=== PATIENT | male | born 1960 | race Caucasian/White ===

== ENCOUNTER 2016-12-02 20:23 | Emergency (ER) ==
[2016-12-02 20:30] VITALS: BP 168/82; TEMP 97.9; BMI 18.6
[2016-12-02] MEDS ORDERED: TENIVAC IM ONE (20:36)
--- NOTE | 2016-12-02 21:20 | CT ---
EXAM: CT head without contrast HISTORY: Fall with nasal and forehead pain COMPARISON: Same day CT cervical spine and CT facial bone TECHNIQUE: Serial axial images of the brain were obtained from the skull base to the vertex without IV contrast. FINDINGS: The ventricles, cisterns and sulci demonstrate mild generalized volume loss The camacho-whi te matter junction is maintained. There is a low attenuation scattered throughout the periventricul ar white matter.No midline shift or mass is identified. There is no abnormal intra or extra-axial f luid collection. The paranasal sinuses and mastoid air cells are clear. The osseous calvarium is i ntact. There is soft tissue injury to the forehead and periorbital soft tissues. The orbital globes retrobulbar structures are normal. IMPRESSION: 1. No acute intracranial abnormality or hemorrhage is identified. 2. Soft tissue injury to the forehead and periorbital tissues with no underlying fracture identifie d. For further evaluation, please see same day report on CT facial bones. 3. Mild generalized volume loss and scattered microangiopathy.
--- NOTE | 2016-12-02 21:21 | CT ---
EXAM: CT of the face and orbits without contrast. HISTORY: Trauma. PROCEDURE: Contiguous axial CT images of the face and orbits without contrast with coronal and sagi ttal reformats. FINDINGS: The bony structures are intact with no evidence of fracture. The temporomandibular joint s are maintained. The orbits are normal in appearance. The globes are intact and symmetric. There is mucosal thickening in the paranasal sinuses. The mastoid air cells are well-aerated. Impression: No evidence of fracture. Paranasal sinusitis.
--- NOTE | 2016-12-02 21:26 | CT ---
EXAM: CT cervical spine without contrast. HISTORY: Fall COMPARISON: CT head same day TECHNIQUE: Serial axial images of the cervical spine were obtained from the skull base through the lung apices without contrast. These were viewed in multiple planes. FINDINGS: Vertebral bodies demonstrate no acute compression fracture or subluxation. There is mild disc space narrowing and osteophyte formation at C4-C5 and C5-C6. There is mild scattered facet ar thropathy present. There is degenerative change at the articulation of the odontoid process and the anterior aspect of C1. The odontoid process is unremarkable. There is mild bilateral neural amalia inal narrowing at C4-C5 with bilateral moderate to severe narrowing at C5-C6 and C6-C7. The lung ap ices demonstrate mild emphysematous disease. IMPRESSION: 1. No acute compression fracture or subluxation of the cervical spine. 2. Multilevel degenerative disease with narrowing most pronounced at C5-C6 and C6-C7 suggestive of bilateral moderate to severe neural foraminal narrowing. 3. Mild apical emphysematous disease.
[2016-12-02] MEDS ORDERED: BACTROBAN TP STA (21:30)
--- NOTE | 2016-12-02 21:34 | ED.PDOC ---
General ED Provider: Dr. JACINTO HUIZAR-ER Chief Complaint: Facial Injury Stated Complaint: fell and hit his face--no loc Time Seen by Physician: 20:25 Mode of Arrival: Walk-In Information Source: Patient Exam Limitations: No limitations Primary Care Provider: KENDY DIAZ Nursing and Triage Documentation Reviewed and Agree: Yes Trauma/Injury Complaint Exam - Facial Injury Complaint/Exam Location of Pain: Reports: Forehead, Nose, Cheek, Chin Mechanism of Injury: Reports: Trauma Onset/Duration: one hour Symptoms Are: Still present Onset of Pain: Reports: Immediate Initial Severity: Mild Current Severity: Mild Location: Reports: Diffuse Character: Reports: Dull Alleviating: Reports: None Aggravating: Reports: None Associated Signs and Symptoms: Reports: Bruising Related Surgical History: Reports: None Facial Findings: Present: Swelling, Ecchymosis, Abrasion Differential Diagnoses: Abrasion, Contusion, Other Review of Systems - Review Of Systems Constitutional: Reports: No symptoms Eyes: Reports: No symptoms Ears, Nose, Mouth, Throat: Reports: No symptoms Respiratory: Reports: No symptoms Cardiac: Reports: No symptoms GI: Reports: No symptoms : Reports: No symptoms Musculoskeletal: Reports: No symptoms Skin: Reports: No symptoms Neurological: Reports: No symptoms Endocrine: Reports: No symptoms Hematologic/Lymphatic: Reports: No symptoms All Other Systems: Reviewed and Negative Past Medical History - Past Medical History Endocrine: Reports: Unknown Cardiovascular: Reports: Unknown Respiratory: Reports: Unknown Hematological: Reports: Unknown Gastrointestinal: Reports: Unknown Genitourinary: Reports: Unknown Neuro/Psych: Reports: Unknown Musculoskeletal: Reports: Unknown Cancer: Reports: Unknown - Surgical History General Surgical History: Reports: Unknown - Family History Family History: Reports: Unknown - Social History Smoking Status: Current every day smoker, Heavy tobacco smoker Hx Substance Use: No Alcohol Screening: Heavy Lives: With family - Immunizations Tetanus Shot up to Date: No Physical Exam - Physical Exam Appearance: Well-appearing, No pain distress, Well-nourished Eyes: GASPER, EOMI, Conjunctiva clear ENT: Ears normal, Nose normal, Oropharynx normal Neck: Supple Respiratory: Airway patent, Breath sounds clear, Breath sounds equal, Respirations nonlabored Cardiovascular: RRR, Pulses normal, No rub, No murmur GI/: Soft, Nontender, No masses, Bowel sounds normal, No Organomegaly Musculoskeletal: Normal strength Skin: Warm, Dry, Normal color Neurological: Sensation intact, Motor intact, Reflexes intact, Cranial nerves intact, Alert, Oriented Psychiatric: Affect appropriate, Mood appropriate Interpretation - Radiology Interpretation Radiology Interpretation By: Radiologist Radiology Results: Negative Exam Interpreted: CT Scan Critical Care Note - Critical Care Note Total Time (mins): 0 Course - Course Orders, Labs, Meds: Orders Category Date Time Status Mupirocin [Bactroban] MEDS 12/02/16 21:30 Discontinued 1 applic TP ONCE STA Tetanus and Diphtheria Tox/Pf [Tenivac] MEDS 12/02/16 20:36 Discontinued 0.5 ml IM .ONCE ONE CT CERVICAL SPINE W/O CONTRAST Stat RADS 12/02/16 20:[address] HEAD W/O CONTRAST Stat RADS 12/02/16 20:[address] MAXILLOFACIAL W/O CONTRAST Stat RADS 12/02/16 20:35 Completed Medications Discontinued Medications Generic Name Dose Route Start Last Admin Trade Name Freq PRN Reason Stop Dose Admin Mupirocin 1 applic 12/02/16 21:30 Bactroban TP 12/02/16 21:31 ONCE STA Tetanus/Diphtheria Toxoids Adsorbed 0.5 ml 12/02/16 20:36 12/02/16 20:42 Tenivac IM 12/02/16 20:37 0.5 ml .ONCE ONE Administration Vital Signs: Temp Pulse Resp BP Pulse Ox 12/02/16 20:24 97.9 F 83 20 168/82 H 95 Departure - Departure Time of Disposition: 21:36 Disposition: HOME SELF-CARE Discharge Problem: Abrasion of face Qualifiers: Encounter type: initial encounter Qualifier Code: (S00.81XA) Abrasion of other part of head, initial encounter Instructions: Abrasion (ED) Condition: Good Pt referred to PMD for follow-up: Yes Additional Instructions: wash abrasions with soap and water only and apply triple antibiotic ointment till healed Allergies/Adverse Reactions: Allergies No Known Allergies Allergy (Verified 12/02/16 20:31) Home Medications: Ambulatory Orders 1 [No Reported Medications] 10/24/14 Disposition Discussed With: Patient, Family
== END 2016-12-02 22:00 | disposition home or self-care (01) ==
LOC: ED 20:23
DX: S00.81XA Abrasion of other part of head, initial encounter (principal); S00.83XA Contusion of other part of head, initial encounter; W19.XXXA Unspecified fall, initial encounter; F17.210 Nicotine dependence, cigarettes, uncomplicated
CPT/HCPCS: 90471; 99283

== ENCOUNTER 2017-04-20 11:57 | Emergency (ER) ==
[2017-04-20 12:02] VITALS: BP 147/103; TEMP 98.3; BMI 18.8
--- NOTE | 2017-04-20 12:11 | ED.PDOC ---
General ED Provider: Dr. MATTHEW AKHTAR Chief Complaint: Wrist Pain/Injury Stated Complaint: Fell last night; L wrist pain. Using a wrist splint for comfort. Time Seen by Physician: 12:15 Mode of Arrival: Walk-In Information Source: Patient Exam Limitations: No limitations Primary Care Provider: KENDY DIAZ Nursing and Triage Documentation Reviewed and Agree: Yes Review of Systems - Review Of Systems Constitutional: Reports: No symptoms Musculoskeletal: Reports: Joint pain (L wrist) Neurological: Reports: No symptoms All Other Systems: Reviewed and Negative Past Medical History - Past Medical History Endocrine: Reports: Unknown Cardiovascular: Reports: Hypertension Respiratory: Reports: COPD Hematological: Reports: None Gastrointestinal: Reports: None Genitourinary: Reports: None Neuro/Psych: Reports: None Musculoskeletal: Reports: None Cancer: Reports: None - Surgical History General Surgical History: Reports: Unknown - Family History Family History: Reports: Unknown - Social History Smoking Status: Current every day smoker Hx Substance Use: No Alcohol Screening: Occasionally - Immunizations Tetanus Shot up to Date: Yes Physical Exam - Physical Exam Appearance: Well-appearing Musculoskeletal: Limited ROM (L wrist; discomfort with motion) Skin: Warm, Dry, Normal color (No ecchymosis) Psychiatric: Affect appropriate, Mood appropriate Interpretation - Radiology Interpretation Radiology Interpretation By: Radiologist Radiology Results: Negative (L wrist) Critical Care Note - Critical Care Note Total Time (mins): 10 Course - Course Orders, Labs, Meds: Orders Category Date Time Status HIMANSHU [ED HIMANSHU WRAP] .ONCE EMERGENCY 04/20/17 12:46 Active WRIST, LEFT 3 VIEWS Stat RADS 04/20/17 12:14 Completed Vital Signs: Temp Pulse Resp BP Pulse Ox 04/20/17 11:58 98.3 F 98 H 20 147/103 H 94 L Departure - Departure Time of Disposition: 12:46 Disposition: HOME SELF-CARE Discharge Problem: Wrist contusion Qualifiers: Encounter type: initial encounter Laterality: left Qualifier Code: (S60.212A) Contusion of left wrist, initial encounter Instructions: Wrist Injury (ED) Condition: Good Pt referred to PMD for follow-up: Yes (Call for appointment at clinic) Additional Instructions: Use himanshu wrap for comfort and support; tylenol and/or Ibuprofen for discomfort. May follow up with primary care at the clinic if not better in one week. Allergies/Adverse Reactions: Allergies No Known Allergies Allergy (Verified 04/20/17 12:02) Home Medications: Ambulatory Orders 1 [No Reported Medications] 10/24/14
--- NOTE | 2017-04-20 12:41 | DI ---
EXAM: Radiographs, left wrist HISTORY: Initial presentation for left wrist trauma. COMPARISON: None available. TECHNIQUE: Three views. FINDINGS: Bone mineralization is normal. There is no fracture or dislocation. Mild osteoarthritic change throughout the wrist. No focal soft tissue abnormality is seen. IMPRESSION: No fracture or dislocation.
== END 2017-04-20 12:58 | disposition home or self-care (01) ==
LOC: ED 11:57
DX: S60.212A Contusion of left wrist, initial encounter (principal); W19.XXXA Unspecified fall, initial encounter; F17.210 Nicotine dependence, cigarettes, uncomplicated
CPT/HCPCS: 99282

== ENCOUNTER 2017-09-22 13:05 | Outpatient (CLI) ==
[2017-09-22] MEDS ORDERED: ALBUTEROL 0.083% NEB NEB STA (13:32)
--- NOTE | 2017-09-22 14:25 | DI ---
EXAM: PA and lateral views of the chest HISTORY: Dyspnea COMPARISON: Chest x-ray 07/20/2016 FINDINGS: The cardiomediastinal silhouette is normal. Lungs are hyperinflated with flattening of th e diaphragm. There is no pneumothorax or pleural effusion. There is no consolidation, nodule or mas s. The osseous structures are unremarkable. IMPRESSION: 1. No acute cardiopulmonary process or consolidation. 2. Stable findings of chronic obstructive pulmonary disease.
--- NOTE | 2017-09-22 14:30 | DI ---
EXAM: Two views of the left knee HISTORY: Left knee pain. COMPARISON: None FINDINGS: Medial and lateral compartments demonstrate minimal osteophyte formation. The patella is n ormal in position. Soft tissues are normal. There is no displaced fracture or dislocation. There i s no lytic or blastic lesion. IMPRESSION: Minimal degenerative disease of the left knee.
== END 2017-09-22 13:06 | disposition home or self-care (01) ==
LOC: CAR 13:05
PROVIDERS: ATTEND Physician Assistant
DX: R06.00 Dyspnea, unspecified (principal); M25.562 Pain in left knee

== ENCOUNTER 2017-09-28 10:53 | Outpatient (CLI) ==
[2017-09-28 11:11] LABS: BASOPHILS % (AUTO) 0.5 % (0.0-3.0); EOSINOPHILS # (AUTO) 0.1 K/ul (0.0-0.7); EOSINOPHILS % (AUTO) 1.8 % (0.0-7.0); HEMATOCRIT 43.3 % (42.0-52.0); HEMOGLOBIN 15.4 g/dl (14.0-18.0); IMMATURE GRANULOCYTE % (AUTO) 0.3 % (0.0-5.0); MEAN CORPUSCULAR HGB CONC 35.6 (31.8-35.4); MEAN CORPUSCULAR VOLUME 87.3 fl (80.0-94.0); MONOCYTES # (AUTO) 1.3 K/uL (0.4-2.0); NEUTROPHILS # (AUTO) 3.2 K/ul (2.0-6.9); NEUTROPHILS % (AUTO) 48.4; PLATELET COUNT 322 10^3/uL (140-440); RED BLOOD COUNT 4.96 10^6/ul (4.70-6.10); WHITE BLOOD COUNT 6.59 K/ul (4.2-10.2)
[2017-09-28 11:52] LABS: ALBUMIN 3.8 g/dL (3.4-5.0); ANION GAP 10.8; BILIRUBIN,TOTAL 0.8 mg/dL (0.00-1.20); BUN/CREATININE RATIO 5.4; CALCIUM 9.4 mg/dL (8.2-10.2); CREATININE 0.74 mg/dL (0.60-1.10); POTASSIUM 3.8 mmol/L (3.5-5.1); TOTAL PROTEIN 7.6 g/dL (6.4-8.2)
[2017-09-29 07:22] LABS: % FREE PSA 14.8 % (.); PSA, FREE 0.68 ng/mL
== END 2017-09-28 10:54 | disposition home or self-care (01) ==
LOC: LAB 10:53
PROVIDERS: ATTEND Physician Assistant
DX: R06.00 Dyspnea, unspecified (principal); R63.6 Underweight; Z13.220 Encounter for screening for lipoid disorders; Z12.5 Encounter for screening for malignant neoplasm of prostate
CPT/HCPCS: 36415; 80053; 80061; 83036; 84439; 84443; 85025

== ENCOUNTER 2017-10-25 13:01 | Outpatient (CLI) | END 2017-10-25 13:02 | disposition home or self-care (01) | LOC: LAB 13:01 | PROVIDERS: ATTEND Physician Assistant | DX: E87.1 Hypo-osmolality and hyponatremia (principal); L28.2 Other prurigo; R94.6 Abnormal results of thyroid function studies; Z11.59 Encounter for screening for other viral diseases | CPT/HCPCS: 36415; 80053; 83930; 84439; 84443; 85025; 86701; 86803 ==

== ENCOUNTER 2017-12-26 10:45 | Inpatient (IN) ==
--- NOTE | 2017-12-26 12:01 | ED.PDOC ---
General ED Provider: Dr. JACINTO TOBIAS Chief Complaint: Fall Stated Complaint: Lt Sided Chest Pain. States fell at home yesterday morning falling into the toliet in his bathroom striking left side of chest. state the night before he had been with his son celebrating his birthday and was consuming alcohol. She found him yesterday in evening lying in bed as he had not been out yesterday. Attempted to bring him to ER but he refused. Convinced him to come to ER this morning. Time Seen by Physician: 12:15 Mode of Arrival: Wheelchair Information Source: Patient, Family Exam Limitations: Clinical condition Primary Care Provider: MARY KAY SOW Referred to ED by: Other (FAMILY) Nursing and Triage Documentation Reviewed and Agree: Yes Reviewed sepsis parameters & appropriate labs ordered?: Yes System Inflammatory Response Syndrome: Not Applicable Sepsis Protocol: For patient's 13 years and over: Temp is 96.8 and below OR 101 and greater Pulse >90 BPM Resp >20/minute Acutely Altered Mental Status Are patient's symptoms suggestive of a new infection, such as: -Pneumonia -Skin, Soft Tissue -Endocarditis -UTI -Bone, Joint Infection -Implantable Device -Acute Abdominal Infection -Wound Infection -Meningitis -Blood Stream Catheter Infection -Unknown System Inflammatory Response Syndrome: Not Applicable Trauma/Injury Complaint Exam - Truncal Trauma Complaint/Exam Location of Pain: Reports: Left, Anterior, Chest, Flank Onset: 2 days Symptoms Are: Still present Onset of Pain: Reports: Immediate, Post accident Initial Severity: Severe Current Severity: Moderate Mechanism: Reports: Direct blow Aggravating: Reports: Movement, Deep breathing, Cough Alleviating: Reports: None Associated Signs and Symptoms: Reports: Short of air, Chest pain, Cough Related History: Reports: COPD. Denies: Similar episode, Occupational injury, Anticoagulants, Prior rib fracture, Heart Disease, Aortic Aneurysm Related Surgical History: Reports: None Immobilization Removed Post Exam: No Vertebral Tenderness Present: No Vertebral Deformity Present: No Trachial Deviation Present: No JVD Present: No Crepitus Present: No (lt lower costal region ) Diminished Breath Sounds: Yes (bibasilar) Reproducible Pain at: Lt lower anterior chest wall extending to CVA angle Muffled Heart Sounds Present: No Paradoxical Chest Wall Movement Present: No Abdominal Guarding Present: No Abdominal Rigidity Present: No Referred Shoulder Pain (Kehr's Sign) Present: No Skin Findings: Present: Normal findings Review of Systems - Review Of Systems Constitutional: Reports: Malaise, Weakness Eyes: Reports: No symptoms Ears, Nose, Mouth, Throat: Reports: No symptoms Respiratory: Reports: Cough, Orthopnea, Short of air, Wheezing Cardiac: Reports: No symptoms GI: Reports: No symptoms : Reports: No symptoms Musculoskeletal: Reports: Back pain, Joint pain Skin: Reports: No symptoms, Rash Neurological: Reports: No symptoms Endocrine: Reports: No symptoms Hematologic/Lymphatic: Reports: No symptoms All Other Systems: Reviewed and Negative Past Medical History - Past Medical History Endocrine: Reports: Unknown Cardiovascular: Reports: Hypertension Respiratory: Reports: COPD Hematological: Reports: None Gastrointestinal: Reports: None Genitourinary: Reports: None Neuro/Psych: Reports: None Musculoskeletal: Reports: None Cancer: Reports: None - Surgical History General Surgical History: Reports: Unknown - Family History Family History: Reports: Unknown - Social History Smoking Status: Current some day smoker Hx Substance Use: No Alcohol Screening: Occasionally - Immunizations Tetanus Shot up to Date: Yes Physical Exam - Physical Exam Appearance: Well-appearing (Tenderness to palpation Lt anterior chest wall and Lt CVA), No pain distress, Well-nourished, Thin Ill-appearing: Mild Pain Distress: Moderate Eyes: GASPER, EOMI, Conjunctiva clear ENT: Ears normal, Nose normal, Oropharynx normal Respiratory: Airway patent, Breath sounds clear, Breath sounds equal, Respirations nonlabored Cardiovascular: RRR, Pulses normal, No rub, No murmur GI/: Soft, Nontender, No masses, Bowel sounds normal, No Organomegaly Musculoskeletal: Normal strength, ROM intact, No edema, No calf tenderness Skin: Warm, Dry, Normal color Neurological: Sensation intact, Motor intact, Reflexes intact, Cranial nerves intact, Alert, Oriented Psychiatric: Affect appropriate, Mood appropriate Interpretation - Radiology Interpretation Radiology Interpretation By: Radiologist Radiology Results: Negative Exam Interpreted: CXR Radiology Interpretation By: Radiologist Radiology Results: Positive Critical Care Note - Critical Care Note Total Time (mins): 0 Course - Course Hematology/Chemistry: 12/28/17 08:05 12/28/17 08:05 Orders, Labs, Meds: Lab Review 12/26/17 12/26/17 12/26/17 11:49 12:05 12:05 WBC 11.83 H RBC 4.97 Hgb 15.5 Hct 43.4 MCV 87.3 MCH 31.2 H MCHC 35.7 H RDW Coeff of Abigail 14.2 Plt Count 254 Immature Gran % (Auto) 0.3 Neut % (Auto) 81.0 Lymph % (Auto) 6.3 L Perry % (Auto) 12.2 H Eos % (Auto) 0.0 Baso % (Auto) 0.2 Immature Gran # (Auto) 0.0 Neut # (Auto) 9.6 H Lymph # (Auto) 0.7 Perry # (Auto) 1.4 Eos # (Auto) 0.0 Baso # (Auto) 0.0 Puncture Site R brach O2 Saturation 87.0 L ABG pH 7.60 H* ABG pCO2 29.0 L ABG pO2 43.0 L* ABG HCO3 28.8 H ABG Total CO2 30 H ABG Base Excess 7 H Yo Test + O2 Delivery Device Ra Oxygen Liter Flow FiO2 % 21.0 Sodium 130 L Potassium 3.3 L Chloride 87 L Carbon Dioxide 27 Anion Gap 19.3 BUN 6 L Creatinine 0.57 L Estimated GFR (MDRD) 146.00 BUN/Creatinine Ratio 10.52 Glucose 138 H Hemoglobin A1c Calcium 9.4 Total Bilirubin 1.0 AST 28 ALT 16 Alkaline Phosphatase 94 Total Protein 7.7 Albumin 3.8 Globulin 3.9 Albumin/Globulin Ratio 0.97 Plasma/Serum Alcohol < 10.0 12/26/17 12/26/17 12/27/17 12:05 13:30 04:35 WBC 11.57 H RBC 4.82 Hgb 15.1 Hct 42.9 MCV 89.0 MCH 31.3 H MCHC 35.2 RDW Coeff of Abigail 14.2 Plt Count 223 Immature Gran % (Auto) 0.3 Neut % (Auto) 70.8 Lymph % (Auto) 12.4 Perry % (Auto) 16.1 H Eos % (Auto) 0.2 Baso % (Auto) 0.2 Immature Gran # (Auto) 0.0 Neut # (Auto) 8.2 H Lymph # (Auto) 1.4 Perry # (Auto) 1.9 Eos # (Auto) 0.0 Baso # (Auto) 0.0 Puncture Site Lr O2 Saturation 94.0 L ABG pH 7.481 H ABG pCO2 40.4 ABG pO2 65.0 L ABG HCO3 30.2 H ABG Total CO2 31 H ABG Base Excess 7 H Yo Test + O2 Delivery Device Nc Oxygen Liter Flow 2.00 FiO2 % Sodium Potassium Chloride Carbon Dioxide Anion Gap BUN Creatinine Estimated GFR (MDRD) BUN/Creatinine Ratio Glucose Hemoglobin A1c 5.1 Calcium Total Bilirubin AST ALT Alkaline Phosphatase Total Protein Albumin Globulin Albumin/Globulin Ratio Plasma/Serum Alcohol 12/27/17 04:35 WBC RBC Hgb Hct MCV MCH MCHC RDW Coeff of Abigail Plt Count Immature Gran % (Auto) Neut % (Auto) Lymph % (Auto) Perry % (Auto) Eos % (Auto) Baso % (Auto) Immature Gran # (Auto) Neut # (Auto) Lymph # (Auto) Perry # (Auto) Eos # (Auto) Baso # (Auto) Puncture Site O2 Saturation ABG pH ABG pCO2 ABG pO2 ABG HCO3 ABG Total CO2 ABG Base Excess Yo Test O2 Delivery Device Oxygen Liter Flow FiO2 % Sodium 129 L Potassium 4.3 Chloride 92 L Carbon Dioxide 23 Anion Gap 18.3 BUN 7 Creatinine 0.57 L Estimated GFR (MDRD) 146.00 BUN/Creatinine Ratio 12.28 Glucose 96 Hemoglobin A1c Calcium 9.3 Total Bilirubin 1.0 AST 32 ALT 15 Alkaline Phosphatase 81 Total Protein 7.3 Albumin 3.5 Globulin 3.8 Albumin/Globulin Ratio 0.92 Plasma/Serum Alcohol Orders Category Date Time Status ADMIT PATIENT INPATIENT .TO [facility] (NON-MONITORED ADMISSION 12/26/17 16: 56 Inactive BED) OBSERVATION [PLACE PATIENT OBSERVATION] .TO [facility] ADMISSION 12/26/17 17: 33 Inactive (MONITORED BED) ABG DRAW REQUEST Stat CARDIO 12/26/17 11:51 Completed ABG DRAW REQUEST Stat CARDIO 12/26/17 13:30 Completed EKG-(ED ONLY) Stat CARDIO 12/26/17 11:50 Completed NEBULIZER TREATMENT Routine CARDIO 12/26/17 17:35 Completed NEBULIZER TREATMENT Stat CARDIO 12/26/17 12:19 Completed OXYGEN Routine CARDIO 12/26/17 17:13 Completed ACTIVITY .Early Mobilization for VTE Prevention CARE 12/26/17 17:11 Active CASE MANAGEMENT CONSULT ONCE CARE 12/26/17 17:12 Completed INSERT SALINE LOCK ONCE CARE 12/26/17 17:12 Active INTAKE & OUTPUT Q8HR CARE 12/26/17 17:12 Active NPO REMINDER: IMAGING ONCE CARE 12/26/17 16:23 Completed TELEMETRY MONITORING TELE CARE 12/26/17 17:12 Active VITAL SIGNS Q4HR CARE 12/26/17 17:12 Active REGULAR DIET DIETARY 12/26/17 Dinner Completed IV [ED IV/MEDIPORT/POWERPORT] .ONCE EMERGENCY 12/26/17 12:21 Active OXYGEN [ED APPLY O2] .ONCE EMERGENCY 12/26/17 12:22 Active ABG Stat LAB 12/26/17 11:49 Completed ABG Stat LAB 12/26/17 13:30 Completed BLOOD ALCOHOL Stat LAB 12/26/17 12:05 Completed CBC W/ AUTO DIFF DAILY@0600 LAB 12/27/17 04:35 Completed CBC W/ AUTO DIFF DAILY@0600 LAB 12/28/17 08:05 Completed CBC W/ AUTO DIFF Stat LAB 12/26/17 12:05 Completed CMP [COMPREHENSIVE METABOLIC PANEL] Stat LAB 12/26/17 12:05 Completed COMPREHENSIVE METABOLIC PANEL DAILY@0600 LAB 12/27/17 04:35 Completed COMPREHENSIVE METABOLIC PANEL DAILY@0600 LAB 12/28/17 08:05 Completed HEMOGLOBIN A1C Stat LAB 12/26/17 12:05 Completed 0.9 % Sodium Chloride [Saline Flush] MEDS 12/26/17 12:21 Discontinued 1 syr IVF PRN PRN Acetaminophen [Tylenol] MEDS 12/26/17 17:32 Discontinued 500 mg PO Q6HR PRN Albuterol Sulfate 0.083% Neb [Albuterol 0.083% Neb] MEDS 12/26/17 17:34 Discontinued 1 vial NEB Q4-6H PRN Chlordiazepoxide HCl [Librium] MEDS 12/26/17 17:31 Discontinued 25 mg PO TID PRN Clonidine HCl [Catapres] MEDS 12/26/17 15:40 Discontinued 0.1 mg PO ONCE STA Clonidine HCl [Catapres] MEDS 12/26/17 17:44 Discontinued 0.1 mg PO Q8HR PRN Dexamethasone 4 mg/ml Inj [Decadron 4 mg/ml Sdv] MEDS 12/26/17 12:24 Discontinued 4 mg IVP ONCE STA Enoxaparin Sodium [Lovenox] MEDS 12/27/17 09:00 Discontinued 40 mg SUBCUT DAILY Hydromorphone HCl [Dilaudid 1 mg/ml Syringe] MEDS 12/26/17 12:46 Discontinued 0.5 mg IVP ONCE STA Levalbuterol HCl [Xopenex 1.25 mg] MEDS 12/26/17 12:19 Discontinued 1 vial NEB ONCE STA Morphine Sulfate [Morphine 2 mg/ml Syringe] MEDS 12/26/17 17:28 Discontinued 2 mg IVP Q4HR PRN Nicotine 21 mg [Nicoderm 21 mg] MEDS 12/27/17 09:00 Discontinued 1 patch TD DAILY Potassium Chloride in 0.9%NaCl [Sodium Chloride 0.9%- MEDS 12/26/17 17:30 Discontinued KCl 20 Meq] 1,000 ml IV 75 mls/hr Sodium Chloride 0.9% [Sodium Chloride] 1,000 ml MEDS 12/26/17 12:21 Discontinued IV BOLUS Sodium Chloride 3% 500 ml MEDS 12/27/17 09:30 Discontinued IV 100 mls/hr Vitamin B-1 Inj [Thiamine] 100 mg MEDS 12/28/17 09:00 Discontinued 0.9 % Sodium Chloride [Sodium Chloride] 50 ml IV DAILY RESUSCITATION STATUS Routine OTHERS 12/26/17 17:11 Ordered CHEST, 1V AP ONLY Stat RADS 12/26/17 11:[address] CHEST W/WO CONTRAST Stat RADS 12/26/17 16:22 Completed RIBS, UNILATERAL LEFT Stat RADS 12/26/17 13:13 Completed PT CONSULT Routine THERAPIES 12/26/17 15:15 Completed Medications Discontinued Medications Generic Name Dose Route Start Last Admin Trade Name Freq PRN Reason Stop Dose Admin Acetaminophen 500 mg 12/26/17 17:32 Tylenol PO Q6HR PRN Mild Pain Hydrocodone Bitart/Acetaminophen 1 tab 12/27/17 11:40 12/27/17 12:27 [place] 7.5-325 PO 1 tab Q6H PRN Administration PAIN Hydrocodone Bitart/Acetaminophen 1 tab 12/27/17 21:00 12/28/17 13:22 [place] 10-325 PO 1 tab Q4HR JULIA Administration Adenosine 6 mg 12/27/17 16:44 12/27/17 16:55 Adenocard IVP 12/27/17 16:45 6 mg ONCE STA Administration Albuterol Sulfate 1 vial 12/26/17 17:34 Albuterol 0.083% Neb NEB Q4-6H PRN Wheezing Amlodipine Besylate 5 mg 12/27/17 11:30 12/27/17 11:14 Norvasc PO 5 mg DAILY JULIA Administration Amlodipine Besylate 5 mg 12/27/17 11:00 12/27/17 13:21 Norvasc PO Not Given DAILY JULIA Chlordiazepoxide HCl 25 mg 12/26/17 17:31 12/27/17 16:17 Librium PO 25 mg TID PRN Administration Alcohol Withdrawal Chlordiazepoxide HCl 25 mg 12/27/17 21:00 Librium PO QSHIFT [facility] Chlordiazepoxide HCl 25 mg 12/27/17 18:00 12/28/17 13:22 Librium PO 25 mg Q4H JULIA Administration Clonidine 0.1 mg 12/26/17 15:40 12/26/17 15:55 Catapres PO 12/26/17 15:41 0.1 mg ONCE STA Administration Clonidine 0.1 mg 12/26/17 17:44 Catapres PO Q8HR PRN Blood Pressure Dexamethasone Sodium Phosphate 4 mg 12/26/17 12:24 12/26/17 12:58 Decadron 4 Mg/Ml Sdv IVP 12/26/17 12:25 4 mg ONCE STA Administration Diltiazem HCl 60 mg 12/27/17 21:00 12/28/17 08:45 Cardizem PO 60 mg Q12HR JULIA Administration Enoxaparin Sodium 40 mg 12/27/17 09:00 12/28/17 08:48 Lovenox SUBCUT 40 mg DAILY JULIA Administration Hydromorphone HCl 0.5 mg 12/26/17 12:46 12/26/17 13:08 Dilaudid 1 Mg/Ml Syringe IVP 12/26/17 12:47 0.5 mg ONCE STA Administration Sodium Chloride 1,000 mls @ 500 mls/hr 12/26/17 12:21 12/26/17 12:56 Sodium Chloride IV 12/26/17 14:20 500 mls/hr BOLUS STA Administration Potassium Chloride/Sodium Chloride 1,000 mls @ 75 mls/hr 12/26/17 17:30 12/28 16:00 Sodium Chloride 0.9%-Kcl 20 Meq IV Not Given .[id number] [facility] Thiamine HCl 100 mg/ Sodium 51 mls @ 100 mls/hr 12/27/17 11:30 12/27/17 11:14 Chloride IV 12/27/17 12:00 100 mls/hr ONCE ONE Administration Thiamine HCl 100 mg/ Sodium 51 mls @ 100 mls/hr 12/28/17 09:00 12/28/17 08:45 Chloride IV 100 mls/hr DAILY JULIA Administration Sodium Chloride 500 mls @ 100 mls/hr 12/27/17 09:30 12/27/17 19:00 Sodium Chloride 3% IV 12/27/17 09:59 Not Given .Q5H JULIA Sodium Chloride 500 mls @ 100 mls/hr 12/28/17 10:30 12/28/17 10:56 Sodium Chloride 3% IV 12/28/17 10:59 100 mls/hr .Q5H JULIA Administration Levalbuterol HCl 1 vial 12/26/17 12:19 12/26/17 12:50 Xopenex 1.25 Mg NEB 12/26/17 12:20 1 vial ONCE STA Administration Metoprolol Tartrate 5 mg 12/27/17 17:06 12/27/17 17:09 Lopressor IVP 12/27/17 17:07 5 mg ONCE STA Administration Morphine Sulfate 2 mg 12/26/17 17:28 12/27/17 16:27 Morphine 2 Mg/Ml Syringe IVP 2 mg Q4HR PRN Administration Severe Pain Nicotine 1 patch 12/27/17 09:00 12/28/17 08:46 Nicoderm 21 Mg TD 1 patch DAILY JULIA Administration Ondansetron HCl 4 mg 12/27/17 16:20 12/27/17 16:15 Zofran 4 Mg/2 Ml IVP 4 mg Q6H PRN Administration Nausea / Vomiting Pneumococcal Polyvalent Vaccine 0.5 ml 12/27/17 13:32 12/27/17 15:13 Pneumovax 23 IM 12/27/17 13:33 0.5 ml .ONCE ONE Administration Sodium Chloride 1 syr 12/26/17 12:21 12/26/17 12:56 Saline Flush IVF 1 syr PRN PRN Administration To flush IV Vital Signs: Temp Pulse Resp BP Pulse Ox 12/27/17 10:23 96.9 F L 97 H 22 194/102 H 89 L 12/27/17 10:00 97.9 F 88 12 183/90 H 89 L 12/27/17 06:00 97.9 F 86 16 147/94 H 90 L 12/27/17 02:00 98.3 F 80 20 174/90 H 92 L 12/26/17 22:00 97.9 F 77 15 160/80 H 94 L 12/26/17 18:02 97.4 F L 80 16 95 12/26/17 17:36 174/87 H 12/26/17 17:23 188/93 H 95 12/26/17 11:27 194/102 H 12/26/17 10:47 96.9 F L 97 H 22 213/113 H 89 L Departure - Departure Time of Disposition: 17:30 Disposition: PLACED OBSERVATION Discharge Problem: Multiple fractures of ribs of left side, Alcohol abuse, Tobacco abuse, Blunt chest trauma Condition: Fair Pt referred to PMD for follow-up: Yes IPMP verified?: Yes Allergies/Adverse Reactions: Allergies No Known Allergies Allergy (Verified 01/01/18 11:13) Home Medications: Ambulatory Orders Albuterol Sulfate [Proair Hfa] 2 puff IH Q4H 14 Days #1 puff 12/28/17 Chlordiazepoxide HCl [Librium] 25 mg PO DIRECTED 15 Days #20 capsule Diltiazem HCl [Cardizem] 60 mg PO Q12HR 30 Days #60 tablet 12/28/17 Hydrocodone Bit/Acetaminophen [[place] 10-325] 1 tab PO Q6-8H PRN 7 Days #28 tab 12/28/17 Vitamin B-1 [Thiamine] 100 mg PO DAILY 30 Days #30 tablet 12/28/17 Potassium Chloride [K-Tab ER] 10 meq PO DAILY #10 tablet.er 01/03/18 Disposition Discussed With: Patient, Family Additional Information: Discussed case with Dr Genao for accepting patient as hospitalist for admission. Agreed to accept patient Came to department and saw pt prior to departure Results discussed with patient/family Condition stable/prognosis -guarded
[2017-12-26] MEDS ORDERED: XOPENEX 1.25 MG NEB STA (12:19)
[2017-12-26] MEDS ORDERED: DECADRON 4 MG/ML SDV 10 MG in SODIUM CHLORIDE 50 ML IV STA (12:20)
[2017-12-26] MEDS ORDERED: SODIUM CHLORIDE 1,000 ML IV STA (12:21)
[2017-12-26] MEDS ORDERED: DECADRON 4 MG/ML SDV IVP STA (12:24)
--- NOTE | 2017-12-26 12:24 | DI ---
Exam: Two x-rays of the chest. Comparison: 09/22/2017. Reason for exam: Short of breath. FINDINGS: No pneumothorax, pleural effusion, or focal consolidation. The cardiac silhouette is not enlarged. The imaged osseous structures appear grossly unremarkable without acute fracture. Parench ymal changes are seen consistent with chronic lung disease. Impression: No acute cardiopulmonary process in the setting of chronic lung disease.
[2017-12-26] MEDS ORDERED: DILAUDID 1 MG/ML SYRINGE IVP STA (12:46)
--- NOTE | 2017-12-26 14:16 | DI ---
EXAM: Two views of the left ribs HISTORY: Pain after falling. COMPARISON: Chest x-ray 09/07/2008 FINDINGS: Minimally displaced fracture of the left sixth, eighth and ninth ribs. No additional fract ure is identified. There is no pneumothorax. The soft tissues are unremarkable. IMPRESSION: Minimally displaced fracture of the left sixth, eighth and ninth ribs.
[2017-12-26] MEDS ORDERED: CATAPRES PO STA (15:40)
--- NOTE | 2017-12-26 16:45 | PCM ---
- Chief Complaint Chief Complaint: Fall with fracture of ribs x 3. Hypoxia. - History of Present Illness History of Present Illness: Contacted by Er at 4:30 Pm about patient in the Er who has fallen. Went to sons and had too much to drink and they carried him to his car. Monday night into monday am and around 1:30. Normally consumes Beer. Drinks daily. The patient drinks coffee in am and then straight to beer. He will be 6-12 beers per day. Today he has not had any ETOH. NO water today. Would not eat last night, would not drink last night. Nothing today. The patient was in severe pain, intractable pain. and patient are . Present in ER today with granddaughter and the . Yeserday was at sons home. Patient goes to wifes home every day. Went over to check on him last night. Found him in bed, could barely move or berath. They got him up and took him to separted wifes home. Did not want ambulance. She took him home with her and he was up all nigth with him with breathing issues. If no better in am they decided to go to ER. They brought him in today. Report given to me by Dr. Loza. He normally folllows with local [facility] clinic. The paitent lost hsi balance and fell hitting his left chest cage. He presented hypoxic, 70% O2 upon entry per ER, BP markedly elevated. Pain meds eased up the pain. 0.1 clonidine. This dropped to normal BP. ABG completed and reported to me at pH 7.6, PO2 43, 87% RA, PCO29. Neb tx, O2 added and his Gas improved to 7.481, Po2 65, PCO2 40.4 and O2 94%. No local PCP, following with local [facility]. The patient is a heavy tobacco user. 1 pack per day smoker. History of right arm injury, circulatory issues and right arm is essentially non functional. Patient reports pain along lower rib cage 10/10. Worse with deep inspiration. Worse with movement. Last drink of ETOH 2 days ago. Has gone 1-1.5 months w/o ETOH. No history of DT per patient. The patient WBC initially was 11.83. Sodium 130. Potasium mildly low at 3.3. BUN 6 and Creatinine normal at 0.57. Glucose 138. Xray showed displaced 6, 8, 9 ribs. We have ordered a CT chest at my request. We will check serum ETOH levels. I wanted to make sure that hs has no contusion of his lung. He is currently having HTN urgency. He has not had anything to eat/drink. Had a sip with clonidine earlier 30 minutes ago. He has had urine output since being in ER. Most recent vitals BP 194/102 Pain 10/10 Left rib cage O2 89% 96.9 temp. RR 22 History of BP meds, BP leveled off after surgery and then BP more normal. - Review of Systems Constitutional: weakness, fatigue, loss of appetite. No: fever, chills, sweats Eyes: pain. No: blurred vision, double-vision, discharge, itching, redness, photophobia Ears: No: pain, bleeding, drainage, ringing Nose: No: bleeding, congestion, discharge Throat: No: pain, swelling, voice change Mouth: No: bleeding, pain, swelling Respiratory: cough, shortness of air, wheeze, pain with breathing. No: hemoptysis Cardiovascular: chest pain (chest pain along left from rib fracture). No: left arm pain, diaphoresis, PND, orthopnea, edema, palpitations, syncope Gastrointestinal: No: abdominal pain, nausea, vomiting, diarrhea Genitourinary: No: dysuria, hematuria, frequency, incontinence, flank pain Neurological: headache. No: dizziness, seizure, numbness, weakness Musculoskeletal: pain Skin: No: rash, pruritus, lacerations Immunology: No: hives, itching, frequent infections Hematology: No: easy bruising, easy bleeding Endocrine: No: weight changes, cold intolerance, heat intolerance, excessive hunger Psychiatric: other (ETOH abuse). No: depression, anxiety, sleeplessness, hopelessness, suicidal, hallucinations Habits: tobacco use, alcohol use - Past Medical History Past Medical History: ETOHISM, essential HTN. Underweight. Arm injury on right due to ETOH issue. - Past Surgical History Past Surgical History: Jaw surgeries. - Allergies Allergies/Adverse Reactions: Allergies Allergy/AdvReac Type Severity Reaction Status Date / Time No Known Allergies Allergy Verified 04/20/17 12:02 - Medications Medications: Medications Generic Name Dose Route Start Last Admin Trade Name Freq PRN Reason Stop Dose Admin Sodium Chloride 1 syr 12/26/17 12:21 12/26/17 12:56 Saline Flush IVF 1 syr PRN PRN Administration To flush IV - Family History Past Family History: Family of 13 children 7 bopys 6 girls. Alcoholism. 2 brothers. 4/13 siblings still living. Mother is living. Father unknown. Cancer in family unknown. - Vital Signs Temperature: 96.9 F Pulse Rate: 97 Respiratory Rate: 22 Blood Pressure: 194/102 O2 Sat by Pulse Oximetry: 89 - Body Composition Height: 5 ft 7 in Weight: 119 lb Body Mass Index (BMI): 18.6 - Physical Examination HEENT: Constitutional: LOCATION: EMERGENCY ROOM Appearance-acute distress, pain in ribs from fracture/fall. Consistent with stated age. Orientation- Oriented x 3, alert Posture-Not doubled over. Gait-Normal pace, normal arm movement. Build and Nutrition-Well developed and well nourished. General- Patient is pleasant and cooperative with the interview and exam. Integumentary: General-No rashes, ulcers or lesions. Palpation- Normal skin moisture/turgor. Skin is warm to touch, appropriate. Capillary refill is normal bilateral Upper and lower extremity. Head/Neck: Head- normocephalic and atraumatic. Neck- without visible/palpable lumps or pulsations. Palpation- No bony tenderness about head/neck along frontal, occipital, temporal, parietal, mastoid, jawline, zygoma, orbit or any other location.~ NO temporal artery tenderness. No TMJ tenderness. Neck Supple. Thyroid-No thyromegaly, no nodules Eye: Bilaterally PERRLA, EOMI. No discharge. Upper and lower eyelids are normal. Sclera/conjunctiva normal without discharge. Cornea is normal and clear. Lens is normal. Eyeball appears normal. No ciliary flushing, no conjunctival injection. ENMT: Pinna- normal without tenderness or erythema. External auditory canal Left- normal without erythema or discharge, no excessive cerumen. External auditory canal Right-normal without erythema or discharge, no excessive cerumen. TM left- Martin/pearly, normal light reflex and anatomy no hemotympanum, no perforation. TM Right- Martin/pearly, normal light reflex and anatomy no hemotympanum, no perforation. Hearing Assessment-normal to conversational speech. Nose and sinus- Abnormality/scarring/flattening to nasal bridge from prior trauma/injury, not from this event. No sinus tenderness along frontal/ maxillary region. External appearance normal and midline. Nares- bilateral quiet airflow, no discharge. Nasal mucosa- No bleeding noted and no ulcerations observed. [place], moist. Turbinates non boggy. Lips- normal color, moist without cracks/lesions Oral Cavity/Palate- hard/soft palate intact without lesions, oral mucosa pink and moist. Dentition assessed and discussed appropriate oral care. Tongue normal midline. Oropharynx- no pharyngeal erythema, Uvula midline. No post nasal drip. No exudate. Salivary glands- Non tender to palpation CHEST/LUNG: Inspection- symmetric chest wall no pectus deformity. No flail chest. Decreased effort, pain response is present. no use of accessory muscles. Palpation- tender sternum, and ribline along left. No abnormal pulsations. Auscultation- Breath sounds diminished throughout all lung hathaway. Normal tracheal sounds, Normal bronchial sounds overlying sternum, Bronchovessicular sounds decreased coarse between scapulae posteriorly, and with vessicular breath sounds heard throughout periphery. Adventitious sounds- Scattered wheezes, no rales, Scattered diffuse rhonchi. Coarse sounds predominate. CARDIOVASCULAR: Carotid artery- normal, no bruits or abnormal pulsations. Jugular vein- no pulsations. Palpation/Percussion- Normal PMI, no palpable thrill Auscultation- Regular rate and rhythm. No murmur noted in sitting, supine positions. Extremities- no digital clubbing, cyanosis, edema, increased warmth. ABDOMEN: Inspection- normal and no visible pulsations. Normal contour. Auscultation- Bowel sounds normal, no abdominal bruits. Palpation/Percussion- soft, non-tender, no rebound tenderness, no rigidity (guarding), no jar tenderness, no masses. Liver-no hepatomegaly, Spleen no splenomegaly, Hernias - none. Rectal not examined. Peripheral Vascular: Upper extremity Left- Normal temperature with pink nailbeds and no ulcerations. Upper extremity Right- Normal temperature with pink nailbeds and no ulcerations. Lower extremity- Normal temperature with pink nailbeds and no ulcerations. DP pulses 2+ bilaterally. Pedal hair intact. Normal capillary refill. Edema- No edema. Musculoskeletal: Generalized-No generalized swelling or edema of extremities, no digital clubbing or cyanosis, neurovascularly intact all four extremities. Upper extremity- Symmetrical posture. No visible deformity. Normal sensation along medial and lateral upper extremity proximally and distally. NO tenderness overlying shoulder, lateral/medial epicondyle. Clinical Professor 5/5 and strength 5/5 bilateral UE. Elbow palpated, no tenderness overlying olecranon. Normal supination, pronation to active/passive ROM and to resisted rotation. Bicep insertion/tricep insertion appear normal without obvious pathology. Rotator cuff evaluated and intact. Normal wrist ROM bilaterally. Normal hand movement, intrinsic muscles of hands normal. No tenderness to palpation of hands/wrists/ elbows. Lower extremity- Hip: Not tender to palpation, no pain, no swelling, edema or erythema of surrounding tissue, normal strength and tone. Normal appearing hip ROM bilaterally without pain. Knee: Knee ROM normal. No tenderness overlying trochanters, no tenderness about patella, quad tendon, patellar tendon. No tenderness at tibial tuberosity. Ankle: normal ROM not tender to palpation along medial/lateral malleolus. Foot: Normal movement of toes, no tenderness bilateral feet/toes. Normal foot type. Spine- No deformities, masses or tenderness, no known fractures, normal strength , Normal ROM. Normal stability No tenderness along C/T/L spine. Normal appearing ROM about spine. RIBS: No visible deformities, no ecchymosis, no masses. Left chest wall from nipple line to costal margin with marked tenderness from anterior mid clavicular line through the posterior spine,known fractures Ribs 8-12, Neurological: General- Moves all 4 extremities symmetrically. Symmetrical face and body posture. Cranial nerves- individually evaluated II-XII and intact. PERRLA, Normal EOMI, visual/special senses appear intact, Face is symmetrical and normal sensation/movement, normal tongue, normal strength/posture of neck musculature. Reflexes- intact with DTR 2+ patellar, Achilles, bicep, brachial, tricep. Ankle clonus normal with 2 beats. Strength- 5/5 bilateral UE and LE. Soft touch- intact bilateral UE and LE. Temperature sensation- intact bilateral UE and LE. Cerebellar testing-Rapid alternating movements intact. Heel huerta intact. Able to walk normal gait, normal heel toe walking. Balance- Romberg intact. Normal Walking, heel toe walking, tip toe and heel walking normal. No E/O DT, no e/o withdrawl. No GAGE, no N/V/D. Neuropsych: Oriented- Person, place, time. (AAOx3), Mood/affect- normal and congruent. Able to articulate well. Speech-Normal speech, normal rate, normal tone, normal use of language, volume and coherence. Thought content- normal with ability to perform basic computations and apply abstract thought/reason. Associations- intact, no SI/HI, no hallucinations, delusions, obsessions. Judgment/insight- Appropriate. Memory-Recall intact, remote and recent memory intact. Knowledge- Age appropriate fund of knowledge, concentration and attention span normal. No aggitation. Lymphatic: Head/Neck- normal size and non tender to palpation. Axillary- normal size and non tender to palpation. Femoral and Inguinal- normal size and non tender to palpation. CIWA Scale. Nausea and vomitin Paroxysmal sweats: 2-3 (pain response most likely at this time) Anxiety: 0 Headache: 0 Auditory disturbances: 0 Visual disturbances: 0 Agitation: 0 Tremor: 0 Tactile disturbance: 0 Orientation: 0 Total score: <10 very mild withdrawal at this time. Monitor. - Lab/Tests/Diagnostic Imaging Lab/Tests/Diagnostic Imaging: Laboratory Results - last 24 hr 12/26/17 12/26/17 12/26/17 11:49 12:05 12:05 WBC 11.83 H RBC 4.97 Hgb 15.5 Hct 43.4 MCV 87.3 MCH 31.2 H MCHC 35.7 H RDW Coeff of Abigail 14.2 Plt Count 254 Immature Gran % (Auto) 0.3 Neut % (Auto) 81.0 Lymph % (Auto) 6.3 L [place] % (Auto) 12.2 H Eos % (Auto) 0.0 Baso % (Auto) 0.2 Immature Gran # (Auto) 0.0 Neut # (Auto) 9.6 H Lymph # (Auto) 0.7 [place] # (Auto) 1.4 Eos # (Auto) 0.0 Baso # (Auto) 0.0 Puncture Site R brach O2 Saturation 87.0 L ABG pH 7.60 H* ABG pCO2 29.0 L ABG pO2 43.0 L* ABG HCO3 28.8 H ABG Total CO2 30 H ABG Base Excess 7 H Yo Test + O2 Delivery Device Ra Oxygen Liter Flow FiO2 % 21.0 Sodium 130 L Potassium 3.3 L Chloride 87 L Carbon Dioxide 27 Anion Gap 19.3 BUN 6 L Creatinine 0.57 L Estimated GFR (MDRD) 146.00 BUN/Creatinine Ratio 10.52 Glucose 138 H Calcium 9.4 Total Bilirubin 1.0 AST 28 ALT 16 Alkaline Phosphatase 94 Total Protein 7.7 Albumin 3.8 Globulin 3.9 Albumin/Globulin Ratio 0.97 Plasma/Serum Alcohol < 10.0 12/26/17 13:30 WBC RBC Hgb Hct MCV MCH MCHC RDW Coeff of Abigail Plt Count Immature Gran % (Auto) Neut % (Auto) Lymph % (Auto) [place] % (Auto) Eos % (Auto) Baso % (Auto) Immature Gran # (Auto) Neut # (Auto) Lymph # (Auto) [place] # (Auto) Eos # (Auto) Baso # (Auto) Puncture Site Lr O2 Saturation 94.0 L ABG pH 7.481 H ABG pCO2 40.4 ABG pO2 65.0 L ABG HCO3 30.2 H ABG Total CO2 31 H ABG Base Excess 7 H Yo Test + O2 Delivery Device Nc Oxygen Liter Flow 2.00 FiO2 % Sodium Potassium Chloride Carbon Dioxide Anion Gap BUN Creatinine Estimated GFR (MDRD) BUN/Creatinine Ratio Glucose Calcium Total Bilirubin AST ALT Alkaline Phosphatase Total Protein Albumin Globulin Albumin/Globulin Ratio Plasma/Serum Alcohol - Assessment (1) Fall Status: Acute Code(s): W19.XXXA - UNSPECIFIED FALL, INITIAL ENCOUNTER SNOMED Code(s): 1187450 (2) Rib fracture Status: Acute Code(s): S22.39XA - FRACTURE OF ONE RIB, UNSP SIDE, INIT FOR CLOS FX SNOMED Code(s): 18677208 (3) Elevated blood pressure, situational Status: Acute Code(s): R03.0 - ELEVATED BLOOD-PRESSURE READING, W/O DIAGNOSIS OF HTN SNOMED Code(s): 21044656 (4) Alcohol abuse Status: Acute Code(s): F10.10 - ALCOHOL ABUSE, UNCOMPLICATED SNOMED Code(s) : 98787369 (5) Intractable pain Status: Acute Code(s): R52 - PAIN, UNSPECIFIED SNOMED Code(s): 41932028 (6) Smokes 1 pack of cigarettes per day Status: Acute Code(s): F17.210 - NICOTINE DEPENDENCE, CIGARETTES, UNCOMPLICATED SNOMED Code(s): 30350820 (7) Underweight due to inadequate caloric intake Status: Acute Code(s): R63.6 - UNDERWEIGHT SNOMED Code(s): 871255242 - Plan Plan: 1. Fall w/ multiple left sided Rib Fractures : CXR minimally displaced. He is in pain 07/18. We will cover pain with morphine as listed. If stable overnight d/c tomorrow with oral pain med. - Morphin 2 mg IV q 4 hours pRN. - Tylenol 500 TID PRN pain - Admit to obs 2. Elevated BP: It is my recommendation to treat the pain first and place patient into a quiet room to rest. He appears dehydrated as well as no liquids in ~24 hours. Hydrate with NS + K and monitor BP. I will have clonidine q 8 hours if BP >180 SBP or >100 DBP. Overnight. IF still high in am consider norvasc 5mg to start. Typically patients who rest >30 minutes in quiet room can have drops in BP of ~20/10. 3. ETOH Abuse: CAGE +. CIWA reviewed and negative. I will have librium ordered if needed. Thiamine. - Librium 25 mg TID PRN withdrawal symptoms. - Thiamine 100mg IV daily 4. Hyponatremia/Hypokalemia: Suspect malnutrition. We will hydrate with NS + 20Kcl at 75/hour. Repeat labs in am. Monitor sodium. Mild hyponatremia, mild hypokalemia. We can use isotonic saline in this case as still >130. I would not use Hypertonic saline unless <130. He is asymptomatic, pain response. Beer [place] is possible with the patient. Albumin is okay. The mild hyponatremia and hypokalemia will be slowly corrected as I do not want to shift this and cause herniation. If sodium dropping further consider single bolus of hypertonic saline but no major corrections necessary as he is likely chronically low. - Am CBC - AM CMP - NS + 20 KCL 75ml/hour 5. Hyperglycemia: We will check a1c. - A1C 6. Tobacco: We will provide nicotine patch for patient. 21 mcg. - Nicoderm 21 mcg patch 7. COPD: At this time wheezing and coarse sounds may be from acute situational process and decreased inhalation due to pain. Neb tx albuterol. No steroids for now. Monitor overnight - Albuterol q 4 hours pRN. 8. DVT Prophy: - LovenoX 40mg Subcut daily. 9. Diet: Ad Александр 10. Up with Assist overnight fall precaution 11. Disposition, likely home in am if stable. Admission: Discussion with ER doctor personally, review of CXR/Rib series and CT chest personally, orders, H+P took just at 1 hour. Suspect observation. If Hypokalemia worsens may consider change to admit. Pain meds to be monitored.
--- NOTE | 2017-12-26 17:16 | CT ---
EXAM: CT of the chest with and without contrast History: Chest trauma, left-sided rib fractures. Technique: Multiplanar CT images through the thorax were obtained with and without the administratio n of IV contrast. 3-D reconstructions were also acquired. Findings: Heart size is upper limits of normal. Coronary calcifications. No aortic aneurysm. Aberr ant left subclavian artery is a normal variation. No axillary lymphadenopathy. No pericardial effus ion. No mediastinal or hilar lymphadenopathy. There is mild emphysema. No pneumothorax. Trace lef t pleural effusion. Mildly displaced fractures of the 05/11/2012, posterior left ribs. There is a m ildly displaced fracture of the left L2 transverse process. Within the visualized upper abdomen, no acute findings. The liver might be fatty. Impression: 1. Displaced left posterior 8th through 12th rib fractures. No pneumothorax. 2. Trace left pleural effusion. 3. Coronary artery disease. 4. Possible fatty liver.
[2017-12-26] MEDS ORDERED: LIBRIUM PO PRN (17:31)
[2017-12-26] MEDS ORDERED: TYLENOL PO PRN (17:32)
[2017-12-26] MEDS ORDERED: ALBUTEROL 0.083% NEB NEB PRN (17:34)
[2017-12-26] MEDS ORDERED: CATAPRES PO PRN (17:44)
[2017-12-26] MEDS: SODIUM CHLORIDE 0.9%-KCL 20 MEQ 1,000 ML IV SCH (18:11)
[2017-12-26] MEDS: MORPHINE 2 MG/ML SYRINGE IVP PRN (18:16)
[2017-12-27] MEDS: SODIUM CHLORIDE 0.9%-KCL 20 MEQ 1,000 ML IV SCH ×2 (07:37→23:16)
[2017-12-27] MEDS: LOVENOX SUBCUT SCH (08:28)
[2017-12-27] MEDS: NICODERM 21 MG TD SCH (08:28)
[2017-12-27] MEDS: MORPHINE 2 MG/ML SYRINGE IVP PRN ×3 (08:46→16:27)
[2017-12-27] MEDS ORDERED: SODIUM CHLORIDE 3% 500 ML IV SCH (09:30)
[2017-12-27 10:13] VITALS: BMI 18.6
[2017-12-27] MEDS ORDERED: NORVASC PO SCH ×2 (11:00→11:30)
[2017-12-27] MEDS ORDERED: NORCO 7.5-325 PO PRN ×2 (11:27→11:40)
[2017-12-27] MEDS ORDERED: THIAMINE 100 MG in SODIUM CHLORIDE 50 ML IV ONE (11:30)
--- NOTE | 2017-12-27 13:08 | PCM.PROG ---
Subjective: Patient awake on entry at 7:15 this am. Met with nursing prior to note and reviewed new labs/evaluation. Reviewed his vitals overnight. The patient has been and remains afebrile with HR from 77-97. RR 12-22. He has pain in his left flank w/ history of 5 fractures from rib 8-12 posteriorly. Patient BP was 212/113 in ER, received clonidine. BP down to 147/4 at 0600 and then back up to 194/102 by the completion of this note. Pain at 07/18, he had morphine at 1816 and then again at 846 this am. He notes the pain meds work for about 4-5 hours and do cut the edge off of his pain. Vitals listed below. He has remained ~89% with orders for oxygen. The patient is not breathing deeply, he feels less pain now. Labs reviewed with patient: Hyperglcymia: A1C ordered and normal at 5.5. Resolved this am. CBC: 11.57 and mildly elevated, Hgb stable at 15.1. PLt remains stable at 254. ABG: no new abg since ER evaluation CMP: Sodium was 130 at admit with potassium 3.3. Chloride low. Glucose up, calcium normal. NOrmal Cr and GFR. Albumin good at 3.8 Labs this am showed. Overnight changes:Despite NS+ 20meq KCL at 75/hl, sodium dropped from 130 to 129. As this dropped <130 I opted for a small bolus of 3% saline. I will repeat BMP this afternoon at 1pm. He has been changed from obs to inpt. Sodium now 129, K + normalized at 4.3. Cr remains okay at 0.57. Calcium okay at 9.3. AST 32, ALT 15. He has CIWA of 2-3 stll, has not had librium. BP remains elevated. I will add norvasc 5mg daily. See patient and consider d/c in am. CT reviewed and displaced 05-20 no pneumothorax. We have talked about the thiamine and this was given. Pain this am 05/18. He is ranging from 5-8/10. I discussed pain will not be removable, reducable and tolerable are our goal. Function is more important than pain relief. No e/o pulmonary edema. He did have trace pleural effusion on CT scan of chest. I/O 0.9ml/kg/hr overnight. Telemetry reviewed: Normal sinus rhythm. Fluid balance +659 ml since admit. Temp Pulse Resp BP Pulse Ox 12/27/17 10:23 96.9 F L 97 H 22 194/102 H 89 L 12/27/17 10:00 97.9 F 88 12 183/90 H 89 L 12/27/17 06:00 97.9 F 86 16 147/94 H 90 L 12/27/17 02:00 98.3 F 80 20 174/90 H 92 L 12/26/17 22:00 97.9 F 77 15 160/80 H 94 L 12/26/17 18:02 97.4 F L 80 16 95 12/26/17 17:36 174/87 H 12/26/17 17:23 188/93 H 95 12/26/17 11:27 194/102 H 12/26/17 10:47 96.9 F L 97 H 22 213/113 H 89 L WBC Trends 12/26/17 12/27/17 Range/Units 12:05 04:35 WBC 11.83 H 11.57 H (4.2-10.2) K/ul H/H Trends 12/26/17 12/27/17 Range/Units 12:05 04:35 Hgb 15.5 15.1 (14.0-18.0) g/dl Hct 43.4 42.9 (42.0-52.0) % Laboratory Results - last 24 hr 12/26/17 12/26/17 12/26/17 11:49 12:05 12:05 WBC 11.83 H RBC 4.97 Hgb 15.5 Hct 43.4 MCV 87.3 MCH 31.2 H MCHC 35.7 H RDW Coeff of Abigail 14.2 Plt Count 254 Immature Gran % (Auto) 0.3 Neut % (Auto) 81.0 Lymph % (Auto) 6.3 L [place] % (Auto) 12.2 H Eos % (Auto) 0.0 Baso % (Auto) 0.2 Immature Gran # (Auto) 0.0 Neut # (Auto) 9.6 H Lymph # (Auto) 0.7 [place] # (Auto) 1.4 Eos # (Auto) 0.0 Baso # (Auto) 0.0 Puncture Site R brach O2 Saturation 87.0 L ABG pH 7.60 H* ABG pCO2 29.0 L ABG pO2 43.0 L* ABG HCO3 28.8 H ABG Total CO2 30 H ABG Base Excess 7 H Yo Test + O2 Delivery Device Ra Oxygen Liter Flow FiO2 % 21.0 Sodium 130 L Potassium 3.3 L Chloride 87 L Carbon Dioxide 27 Anion Gap 19.3 BUN 6 L Creatinine 0.57 L Estimated GFR (MDRD) 146.00 BUN/Creatinine Ratio 10.52 Glucose 138 H Hemoglobin A1c Calcium 9.4 Total Bilirubin 1.0 AST 28 ALT 16 Alkaline Phosphatase 94 Total Protein 7.7 Albumin 3.8 Globulin 3.9 Albumin/Globulin Ratio 0.97 Plasma/Serum Alcohol < 10.0 12/26/17 12/26/17 12/27/17 12:05 13:30 04:35 WBC 11.57 H RBC 4.82 Hgb 15.1 Hct 42.9 MCV 89.0 MCH 31.3 H MCHC 35.2 RDW Coeff of Abigail 14.2 Plt Count 223 Immature Gran % (Auto) 0.3 Neut % (Auto) 70.8 Lymph % (Auto) 12.4 [place] % (Auto) 16.1 H Eos % (Auto) 0.2 Baso % (Auto) 0.2 Immature Gran # (Auto) 0.0 Neut # (Auto) 8.2 H Lymph # (Auto) 1.4 [place] # (Auto) 1.9 Eos # (Auto) 0.0 Baso # (Auto) 0.0 Puncture Site Lr O2 Saturation 94.0 L ABG pH 7.481 H ABG pCO2 40.4 ABG pO2 65.0 L ABG HCO3 30.2 H ABG Total CO2 31 H ABG Base Excess 7 H Yo Test + O2 Delivery Device Nc Oxygen Liter Flow 2.00 FiO2 % Sodium Potassium Chloride Carbon Dioxide Anion Gap BUN Creatinine Estimated GFR (MDRD) BUN/Creatinine Ratio Glucose Hemoglobin A1c 5.1 Calcium Total Bilirubin AST ALT Alkaline Phosphatase Total Protein Albumin Globulin Albumin/Globulin Ratio Plasma/Serum Alcohol 12/27/17 04:35 WBC RBC Hgb Hct MCV MCH MCHC RDW Coeff of Abigail Plt Count Immature Gran % (Auto) Neut % (Auto) Lymph % (Auto) [place] % (Auto) Eos % (Auto) Baso % (Auto) Immature Gran # (Auto) Neut # (Auto) Lymph # (Auto) [place] # (Auto) Eos # (Auto) Baso # (Auto) Puncture Site O2 Saturation ABG pH ABG pCO2 ABG pO2 ABG HCO3 ABG Total CO2 ABG Base Excess Yo Test O2 Delivery Device Oxygen Liter Flow FiO2 % Sodium 129 L Potassium 4.3 Chloride 92 L Carbon Dioxide 23 Anion Gap 18.3 BUN 7 Creatinine 0.57 L Estimated GFR (MDRD) 146.00 BUN/Creatinine Ratio 12.28 Glucose 96 Hemoglobin A1c Calcium 9.3 Total Bilirubin 1.0 AST 32 ALT 15 Alkaline Phosphatase 81 Total Protein 7.3 Albumin 3.5 Globulin 3.8 Albumin/Globulin Ratio 0.92 Plasma/Serum Alcohol Objective: Vitals: T=96.9 F, P=97, R=22, AM=678/102, SPO2=89 Constitutional: Appearance-No acute distress, resting in bed, calm, watching TV. Pain meds given at around 9 am. Orientation- Oriented x 3, alert General - Patient is pleasant and cooperative with the interview and exam. Integumentary: General-No rashes, ulcers or lesions. Eyes: PERRLA, EOMI. Normal accommodation. CHEST/LUNG: Inspection- symmetric chest wall no pectus deformity, no flail chest. No paradoxical movements. He has reduced effort, no distress, no use of accessory muscles. Palpation- nontender sternum this am. Tender along left ribline now from axillary line posteriorly towards spine costal margin and inferiorly. ribline. No abnormal pulsations. Auscultation- Breath sounds diminished throughout most of lung [place]. Normal tracheal sounds, Normal bronchial sounds overlying sternum, Bronchovessicular sounds coarse between scapulae posteriorly and with breath sounds heard throughout periphery. Lungs are clear today. Adventitious sounds- No wheezes, no rales, rhonchi persist. Breathing is more stable. CARDIOVASCULAR: Carotid artery- normal, no bruits or abnormal pulsations. Jugular vein- no pulsations. Palpation/Percussion- Normal PMI, no palpable thrill Auscultation- Regular rate and rhythm. No murmur noted in sitting, supine positions. Extremities- no digital clubbing, cyanosis, edema, increased warmth. ABDOMEN: Inspection- normal and no visible pulsations. Normal contour. Auscultation- Bowel sounds normal, no abdominal bruits. Palpation/Percussion- soft, non-tender, no rebound tenderness, no rigidity (guarding), no jar tenderness, no masses.. Peripheral Vascular: Upper extremity Left- Normal temperature with pink nailbeds and no ulcerations. Upper extremity Right- Normal temperature with pink nailbeds and no ulcerations. Lower extremity- Normal temperature with pink nailbeds and no ulcerations. DP pulses 2+ bilaterally. Normal capillary refill. Edema- No edema. Musculoskeletal: Generalized-No generalized swelling or edema of extremities, no digital clubbing or cyanosis, neurovascularly intact all four extremities. Upper extremity- Symmetrical posture. No visible deformity. Normal sensation along medial and lateral upper extremity proximally and distally. NO tenderness overlying shoulder, lateral/medial epicondyle. Heel [place] 5/5 and strength 5/5 bilateral UE. Spine- No deformities, masses or tenderness, no known fractures, normal strength , Normal ROM. Normal stability No tenderness along C/T/L spine. Normal appearing ROM about spine. Ribs: No ecchymosis noted. No masses. Left chest wall tender from axillary line to the spine. Rib fractures present. Neuro: No tremor to resting or intention. Neuropsych: Oriented- Person, place, time. (AAOx3), Mood/affect- normal and congruent. In pain. Somewhat flattened. Speech-Normal speech, normal rate, normal tone, normal use of language, volume and coherence. Thought content- normal with ability to perform basic computations and apply abstract thought/ reason. Associations- intact, no SI/HI, no hallucinations, delusions, obsessions. Judgment/insight- Appropriate. Memory-Recall intact, remote and recent memory intact. Knowledge- Age appropriate fund of knowledge, concentration and attention span normal. Lymphatic: Head/Neck- normal size and non tender to palpation. Axillary- normal size and non tender to palpation. Femoral and Inguinal- normal size and non tender to palpation. Lab/Tests/Diagnostic Imaging: As noted above. CIWA SCALE by me this am: N/V:0 Sweats: 2-3 Anxiety: 0 Headache: 0 Auditory Disturbance: 0 Visual disturbance: 0 Agitation: 0 Tremor: 0 Tactile disturbance:0 Orientation: 0 Score of 2-3 and <10, mild symptoms. (1) Fall Status: Acute Code(s): W19.XXXA - UNSPECIFIED FALL, INITIAL ENCOUNTER SNOMED Code(s): 5036786 (2) Rib fracture Status: Acute Code(s): S22.39XA - FRACTURE OF ONE RIB, UNSP SIDE, INIT FOR CLOS FX SNOMED Code(s): 99343859 (3) Elevated blood pressure, situational Status: Acute Code(s): R03.0 - ELEVATED BLOOD-PRESSURE READING, W/O DIAGNOSIS OF HTN SNOMED Code(s): 84935636 (4) Alcohol abuse Status: Acute Code(s): F10.10 - ALCOHOL ABUSE, UNCOMPLICATED SNOMED Code(s) : 49215655 (5) Intractable pain Status: Acute Code(s): R52 - PAIN, UNSPECIFIED SNOMED Code(s): 60034196 (6) Smokes 1 pack of cigarettes per day Status: Acute Code(s): F17.210 - NICOTINE DEPENDENCE, CIGARETTES, UNCOMPLICATED SNOMED Code(s): 61534353 (7) Underweight due to inadequate caloric intake Status: Acute Code(s): R63.6 - UNDERWEIGHT SNOMED Code(s): 830189483 (8) Hyponatremia Status: Acute Code(s): E87.1 - HYPO-OSMOLALITY AND HYPONATREMIA SNOMED Code( s): 91896818 (9) Hypokalemia Status: Acute Code(s): E87.6 - HYPOKALEMIA SNOMED Code(s): 21335587 Plan: 1. Fall/Rib fracture: Pain seems to be controlled for 4-6 hours with the morphine. I will change him to oral pain meds this afternoon and see how he does with TID [place] 7.5 for the next 12 hours. If tolerating this, if pain is controlled then we will plan on d/c tomorrow. 2. Hyponatremia: At this time worsening. This still may be within the range of normal. However, he has been dehydrated. I gave bolus of 50ml of 3% saline and we will continue NS through the night. We have considered [place] and will monitor very closely. We will check urine sodium, serum and urine osmolality with 1pm labs. Will follow up with the urine sodium and omolality data. Will see if urine osmolality and sodium are okay. Determine if the sodium is <40 and osmolality is <100. -BMP -Urine sodium - Serum osmolality/urine osmolality. - 50ml 3% saline 3. Hypokalemia: resolved. Continue K+ in fluids for now. - Will check magnesium 4. ETOH ABuse: Thiamine 100mg IV given daily. Has librium for withdrawal. CIWA of 2-3 and mild. Since <10 we can use PRN dosing. 5. HTN elevation: Still feel situational. However I will add norvasc 5mg daily to the clonidine PRN. Talked with nursing about this. * Change of medications. Add Norvasc 5mg daily today. verbal given to nursing secondary to computer technical issue* -Norvasc 5 daily. 6. Tobacco: Nicotine patches ordered 7. Diet: ad radha 8. Up with assist. 9. Disposition: If BP improved and hyponatremia improving and pain is better controlled, home in am tomorrow. Changed to hospital admission today.
[2017-12-27] MEDS ORDERED: PNEUMOVAX 23 IM ONE (13:32)
[2017-12-27] MEDS ORDERED: ZOFRAN 4 MG/2 ML ONE (16:15)
[2017-12-27] MEDS ORDERED: ZOFRAN 4 MG/2 ML IVP PRN (16:20)
[2017-12-27] MEDS ORDERED: MORPHINE 2 MG/ML SYRINGE ONE (16:24)
[2017-12-27] MEDS ORDERED: ADENOCARD IVP STA ×2 (16:44→16:58)
[2017-12-27] MEDS: CARDIZEM PO SCH ×2 (16:57→21:19)
[2017-12-27] MEDS ORDERED: LOPRESSOR IVP STA (17:06)
--- NOTE | 2017-12-27 17:46 | PCM.PROG ---
Subjective: Called to floor at 4:05 as patient was having SVT 190-200 and Nausea for past 5 minutes. I went to room and evaluated patient, saw EKG w/ SVT, axis appears normal QTC 447 and possible V5/v6 depression. Troponins ordered, Librium administered, IV morphine 2 mg admit for his rib fracture pain (had norco more than 2 hours ago). We talked about ETOH withdrawal with the palpitations, tachycardia and the nausea. No hallucinations, no cognitive changes. He has been NSR and feeling fine up until now. NO ETOH 72 hours. I have personally done CIWA x 2 on him. Now with Nausea 3, sweat on forehead and neck but not drenching 4, no anxiety 0, GAGE not present 0, no auditory disturbances 0, visual disturbances 0, mildly agitated 1, no tremor 0, mild sesoriaum disorientation. Score has been 2-3 since admit and now he was at least 8. I have changed librium to q shift. I have added the IV morphine back to the list and I will increase his pain medications to norco 10 from norco 7.5 scheduled q 4 hours with breakthrough IV morphine. Monitor showed SVT HR ~190-200. I had patient perform Vagal maneuvers and this slowed him temporarily and then heart rate sped back up. I then added ice to face, carotid rub right side and vagal maneuvered. This did not provide any noticeable decline. ER notifed and cardiology staff notified that I was going to use Patient was given 6mg IV rapid push adenosine at 16:52 and slight pause followed by Sinus tachy. Rhythm was 120-160 and trying to get back to 190-200 region. Cardizem 60mg BID started PO today. Monitored HR and this fluctuated but never went back into any re-entry or similar rhythm. Librium dose was at 410, this will improve his symptoms and as noted above I have changed this to q shift now. Pain was 9/10 and dropped to 5/10 then to 4/10 with the morphine. After HR remained elevated , I did opt for metoprolol 5mg IV x 1 at 1707. This led to a sustained decrease in his HR and he felt much better. HR stable in 90's, pain controlled and Nausea resolved. Never any GAGE. He did have decrease in O2 to high 80's and NRBM was added with return to mid 90's. The patient stabilized. 16:15-17:30 spent directly involved in critical care at bedside in room. Total Critical Care time 75 minutes. Meds given: Adenosine w/ flush, Cardizem PO, Metoprolol IV 5mg w/ flush, Librium and morphine 2mg IV. 1. ETOH Withdrawal: CIWA score of 8 or greater, he will get librium 25 now. Now that he is stable, librium q 4-6 hours scheduled will be given. 2. SVT: Cardizem 60mg BID. Stop amlodipine. 3. Rib fractures: Repeat CXR New Labs CBC, CMP now. B12 in am. CBC/CMP in the am. ER updated about patient stable state as of end of the critical care time. Cardiology updated as well. Personally reviewed Tele, evaluated the EKG with narrow complex Tachycardia likely SVT 16:12 EKG. 16:13 Sinus tachy normal axis, ?IA depression V1, v2. 16: 13:52 SVT with repolarization abnl rate 195. 1700 sinus tachy with possible LVH , biatrial enlargement listed with sinusoidal P in v1. Rate of 99 at 17:10 on EKG with LVH by EKG voltage criteria. Inv P in V1. Electrolytes were better today. Sodium was better, K+ has been stable. Peaked T in V3-V5. Repeat CBC/ CMP now. Objective: SVT with HR 186->200. Did not respond to vagal maneuvers, carotid rub or to ice massage. Adenosine given. Pulm: Coarse sounds throughout, tender chest wall posterior lateral left. Rib fractures 8-12. Cardiac: Significant narrow complex tachycardia. Pulse ox did drop down to high 80's and NRBRM added to patient. Skin: Mildly diaphoretic about head and neck. Cap refill remained <2 seconds. Extremities: NO peripheral edema. CPK/Troponin I Trends 12/27/17 Range/Units 16:15 Total Creatine Kinase 78 U/L Troponin I 0.0120 (0.0000-0.4000) ng/ml (1) Fall Status: Acute Code(s): W19.XXXA - UNSPECIFIED FALL, INITIAL ENCOUNTER SNOMED Code(s): 2158874 (2) Rib fracture Status: Acute Code(s): S22.39XA - FRACTURE OF ONE RIB, UNSP SIDE, INIT FOR CLOS FX SNOMED Code(s): 18905018 (3) Elevated blood pressure, situational Status: Acute Code(s): R03.0 - ELEVATED BLOOD-PRESSURE READING, W/O DIAGNOSIS OF HTN SNOMED Code(s): 97772412 (4) Alcohol abuse Status: Acute Code(s): F10.10 - ALCOHOL ABUSE, UNCOMPLICATED SNOMED Code(s) : 54450198 (5) Intractable pain Status: Acute Code(s): R52 - PAIN, UNSPECIFIED SNOMED Code(s): 03056423 (6) Smokes 1 pack of cigarettes per day Status: Acute Code(s): F17.210 - NICOTINE DEPENDENCE, CIGARETTES, UNCOMPLICATED SNOMED Code(s): 24142964 (7) Underweight due to inadequate caloric intake Status: Acute Code(s): R63.6 - UNDERWEIGHT SNOMED Code(s): 888754367 (8) Hyponatremia Status: Acute Code(s): E87.1 - HYPO-OSMOLALITY AND HYPONATREMIA SNOMED Code( s): 43713798 (9) Hypokalemia Status: Acute Code(s): E87.6 - HYPOKALEMIA SNOMED Code(s): 63976107 (10) SVT (supraventricular tachycardia) Status: Acute Code(s): I47.1 - SUPRAVENTRICULAR TACHYCARDIA SNOMED Code(s): 3540432 (11) Alcohol withdrawal Status: Acute Code(s): F10.239 - ALCOHOL DEPENDENCE WITH WITHDRAWAL, UNSPECIFIED SNOMED Code(s): 505704121 Plan: 1. As noted above critical care time of 75 minutes. 2. Librium 25 mg q 4H . 3. Will change norco to 10mg q 4 hours. 4. CBC/CMP/CXR now 5. Vit B12/folate in am 6. Continue thiamine 100mg IV daily. 7. Cardizem 60mg BID 8. See back in am. Will likely keep him one more day. 9. REpeat Troponin I in 3 hours.
[2017-12-27] MEDS: LIBRIUM PO SCH ×2 (18:11→21:19)
--- NOTE | 2017-12-27 18:24 | DI ---
EXAM: Single-view chest HISTORY: Chest pain COMPARISON: Single-view chest 12/26/2017 FINDINGS: The cardiomediastinal silhouette is stable. There is bibasilar atelectasis.. There is qu estionable left effusion. There is no evidence of pneumothorax. IMPRESSION: Bibasilar atelectasis. Questionable small left effusion
[2017-12-27] MEDS ORDERED: LIBRIUM PO SCH (21:00)
[2017-12-27] MEDS ORDERED: NORCO 7.5-325 ONE (21:16)
[2017-12-27] MEDS: NORCO 10-325 PO SCH (21:23)
[2017-12-28] MEDS: NORCO 10-325 PO SCH ×4 (01:32→13:22)
[2017-12-28] MEDS: LIBRIUM PO SCH ×4 (01:32→13:22)
[2017-12-28] MEDS: CARDIZEM PO SCH (08:45)
[2017-12-28] MEDS: NICODERM 21 MG TD SCH (08:46)
[2017-12-28] MEDS: LOVENOX SUBCUT SCH (08:48)
[2017-12-28] MEDS ORDERED: THIAMINE 100 MG in SODIUM CHLORIDE 50 ML IV SCH (09:00)
--- NOTE | 2017-12-28 10:05 | PCM.PROG ---
Subjective: Yesterday afternoon 4:05 I was called to patient room for SVT HR 190's-200's. I left clinic and went to room to reassess. The patient was resting in bed mildly clammy about head/neck and having prominent narrow complex QRS tachycardia. HE was not unstable. I attempted valsalva with patient, blowing through straw, bearing down. I tried carotid massage and ice packs to face/head /neck. This did not resolve the issue and the patient continued to have HR of ~ 200. Contacted cardiology and ER to let them know I was going to use adenosine. 6mg given and he converted to sinus tachy. Cardizem 60mg PO given and started BID. HR still fluctuating from 120's-200's and then high 90's. Metoprolol 5mg IV given and hR slowed and remained sinus. His troponin was normal, we repeated this ~2 hours later and it had doubled, still low/normal. Repeated again 3 hours later and it had dropped again. I was contacted last night at 11:30. This am rounds evaluated, Tele overnight reviewed and this showed that the patient had NSR through the night, BP controlled. O2 89-97%. he has been on NC and NRBM. Discussed case with nurse. I+O reviewed and 1.11 ml/kg/hr. He has 1450 balance. No labs were available for me this am as the pt refused them this am. NO blood draws from the right due to history of injury to right arm. CXR repeated from last night bibasilar atelectasis, small effusion. Troponin yesterday 0.0120 at 1615, 0.0280 18:21 and 0.0150 at 21:20. WBC yesterday bumped to 15.5 from 11.57. Decreased lymphos and ANC is stable. BP has been great through the night. Talked with patient at 7:30 this am. He noted pain with sticks. I discussed to see if we could draw this from his IV. He agreed. As of 12/28/17 10 am the patient labs returned. Sodium had dropped from 130 to 128, he has already received 50ml of 3% saline. He has not had much to eat during stay. He does not eat much but drinks a lot of ETOH. We will give him oral K+ as he is staying <4.0. WBC has trended back down with 14.86 and Hgb stable. I went back to check on him to talk about the labs and he had a soda colored urine sitting on the bedside table that was ~1 hour old. They have been clear up until now. Getting regular librium, he is on norco for pain control and IV morphine as needed. I have ordered a CPK and UA w/ C+S if needed. Bili is fine , alk phos is fine. Liver enzymes are fine. ?myoglobin. I want to make sure no e/o rhabdo. His creatinine and GFR remain stable. He wants to go home today. I agree that he needs to have pain control at this point. I will give another 50ml of 3% saline and recommend that he see his PCP office tomorrow. Laboratory Results - last 24 hr 12/27/17 12/27/17 12/27/17 13:00 16:15 18:21 WBC 15.50 H RBC 4.80 Hgb 15.1 Hct 43.0 MCV 89.6 MCH 31.5 H MCHC 35.1 RDW Coeff of Abigail 14.0 Plt Count 229 Immature Gran % (Auto) 0.2 Neut % (Auto) 80.7 Lymph % (Auto) 8.6 L Bulloch % (Auto) 10.3 H Eos % (Auto) 0.1 Baso % (Auto) 0.1 Immature Gran # (Auto) 0.0 Neut # (Auto) 12.5 H Lymph # (Auto) 1.3 Bulloch # (Auto) 1.6 Eos # (Auto) 0.0 Baso # (Auto) 0.0 Sodium 131 L Potassium 3.6 Chloride 87 L Carbon Dioxide 28 Anion Gap 19.6 BUN 7 Creatinine 0.60 Estimated GFR (MDRD) 138.00 BUN/Creatinine Ratio 11.66 Glucose 104 H Calcium 9.2 Magnesium 1.9 Total Bilirubin AST ALT Alkaline Phosphatase Total Creatine Kinase 78 Troponin I 0.0120 Total Protein Albumin Globulin Albumin/Globulin Ratio Vitamin B12 Folate 12/27/17 12/27/17 12/27/17 18:21 18:21 21:20 WBC RBC Hgb Hct MCV MCH MCHC RDW Coeff of Abigail Plt Count Immature Gran % (Auto) Neut % (Auto) Lymph % (Auto) Bulloch % (Auto) Eos % (Auto) Baso % (Auto) Immature Gran # (Auto) Neut # (Auto) Lymph # (Auto) Bulloch # (Auto) Eos # (Auto) Baso # (Auto) Sodium 130 L Potassium 3.7 Chloride 87 L Carbon Dioxide 29 Anion Gap 17.7 BUN 7 Creatinine 0.60 Estimated GFR (MDRD) 138.00 BUN/Creatinine Ratio 11.66 Glucose 96 Calcium 9.0 Magnesium Total Bilirubin 0.9 AST 26 ALT 14 Alkaline Phosphatase 81 Total Creatine Kinase Troponin I 0.0280 0.0150 Total Protein 6.9 Albumin 3.3 L Globulin 3.6 Albumin/Globulin Ratio 0.92 Vitamin B12 Folate 12/28/17 12/28/17 12/28/17 08:05 08:05 08:05 WBC 14.86 H RBC 4.35 L Hgb 13.5 L Hct 38.9 L MCV 89.4 MCH 31.0 MCHC 34.7 RDW Coeff of Abigail 14.0 Plt Count 212 Immature Gran % (Auto) 0.4 Neut % (Auto) 80.0 Lymph % (Auto) 8.1 L Bulloch % (Auto) 11.2 H Eos % (Auto) 0.1 Baso % (Auto) 0.2 Immature Gran # (Auto) 0.1 Neut # (Auto) 11.9 H Lymph # (Auto) 1.2 Bulloch # (Auto) 1.7 Eos # (Auto) 0.0 Baso # (Auto) 0.0 Sodium 128 L Potassium 3.5 Chloride 90 L Carbon Dioxide 28 Anion Gap 13.5 BUN 11 Creatinine 0.57 L Estimated GFR (MDRD) 146.00 BUN/Creatinine Ratio 19.29 Glucose 84 Calcium 8.7 Magnesium Total Bilirubin 0.9 AST 21 ALT 12 Alkaline Phosphatase 66 Total Creatine Kinase Troponin I Total Protein 6.0 L Albumin 2.9 L Globulin 3.1 Albumin/Globulin Ratio 0.94 Vitamin B12 342 Folate 10.4 Lab search within computer showed 09/28/17 Sodium 126. 10/25/17 128 sodium. He is essentially at the same level. B12 is low normal. I would recommend serum MMA as outpatient. Objective: Vitals: T=97.9 F, P=95, R=14, JX=201/69, SPO2=86 Constitutional: Appearance-No acute distress, resting in bed, calm, watching TV. Awake alert and interactive. More talkative today. Edentulous. Orientation - Oriented x 3, alert General- Patient is pleasant and cooperative with the interview and exam. He really wants to go home. Condition is guarded after events from yesterday. Integumentary: General-No rashes, ulcers or lesions. Eyes: PERRLA, EOMI. Normal accommodation. CHEST/LUNG: Inspection- symmetric chest wall no pectus deformity, no flail chest. No paradoxical movements. He has reduced effort, no distress, no use of accessory muscles. Palpation- nontender sternum this am. Tender along left ribline now from axillary line posteriorly towards spine costal margin and inferiorly. ribline. No abnormal pulsations. Auscultation- Breath sounds diminished and coarse throughout most of lung hathaway. Incentive spirometry is at bedside. Normal tracheal sounds, Normal bronchial sounds overlying sternum, Bronchovessicular sounds coarse between scapulae posteriorly and with breath sounds heard throughout periphery. Adventitious sounds- No wheezes, no rales, rhonchi persist. Breathing is more stable. Still with coarse sounds throughout. He feels at baseline. Incentive spirometry at bedside. CARDIOVASCULAR: Carotid artery- normal, no bruits or abnormal pulsations. Jugular vein- no pulsations. Palpation/Percussion- Normal PMI, no palpable thrill Auscultation- Regular rate and rhythm. No murmur noted in sitting, supine positions. Extremities- no digital clubbing, cyanosis, edema, increased warmth. Normal HR, normal BP at present. ABDOMEN: Inspection- normal and no visible pulsations. Normal contour. Auscultation- Bowel sounds normal, no abdominal bruits. Palpation/Percussion- soft, non-tender, no rebound tenderness, no rigidity (guarding), no jar tenderness, no masses.. Peripheral Vascular: Upper extremity Left- Normal temperature with pink nailbeds and no ulcerations. 2 IV present. Upper extremity Right- Normal temperature with pink nailbeds and no ulcerations. Lower extremity- Normal temperature with pink nailbeds and no ulcerations. DP pulses 2+ bilaterally. Normal capillary refill. Edema- No edema. Limited use of right arm due to history of injury to right arm. Musculoskeletal: Generalized-No generalized swelling or edema of extremities, no digital clubbing or cyanosis, neurovascularly intact all four extremities. Upper extremity- Symmetrical posture. No visible deformity. Normal sensation along medial and lateral upper extremity proximally and distally. NO tenderness overlying shoulder, lateral/medial epicondyle. [employer] 5/5 and strength 5/5 bilateral UE. Spine- No deformities, masses or tenderness, no known fractures, normal strength , Normal ROM. Normal stability No tenderness along C/T/L spine. Normal appearing ROM about spine. Ribs: No ecchymosis noted. No masses. Left chest wall tender from axillary line to the spine. Rib fractures present. Neuro: No tremor to resting or intention. Neuropsych: Oriented- Person, place, time. (AAOx3), Mood/affect- flat, saddened. NO SI/HI. Wants his back. He has been using librium q 4 hours now. In pain. Somewhat flattened. Speech-Normal speech, normal rate, normal tone, normal use of language, volume and coherence. Thought content- normal with ability to perform basic computations and apply abstract thought/reason. Associations- intact, no SI/HI, no hallucinations, delusions, obsessions. Judgment/insight- Appropriate. Memory-Recall intact, remote and recent memory intact. Knowledge- Age appropriate fund of knowledge, concentration and attention span normal. Lymphatic: Head/Neck- normal size and non tender to palpation. Axillary- normal size and non tender to palpation. Femoral and Inguinal- normal size and non tender to palpation. CIWA SCALE by me this am: Now back to normal. N/V:0 Sweats: 2-3 Anxiety: 0 Headache: 0 Auditory Disturbance: 0 Visual disturbance: 0 Agitation: 0 Tremor: 0 Tactile disturbance:0 Orientation: 0 Score of 2-3 and <10, mild symptoms. (1) Fall Status: Acute Code(s): W19.XXXA - UNSPECIFIED FALL, INITIAL ENCOUNTER SNOMED Code(s): 2389643 (2) Rib fracture Status: Acute Code(s): S22.39XA - FRACTURE OF ONE RIB, UNSP SIDE, INIT FOR CLOS FX SNOMED Code(s): 08134692 (3) Elevated blood pressure, situational Status: Acute Code(s): R03.0 - ELEVATED BLOOD-PRESSURE READING, W/O DIAGNOSIS OF HTN SNOMED Code(s): 59273322 (4) Alcohol abuse Status: Acute Code(s): F10.10 - ALCOHOL ABUSE, UNCOMPLICATED SNOMED Code(s) : 38883137 (5) Intractable pain Status: Acute Code(s): R52 - PAIN, UNSPECIFIED SNOMED Code(s): 48715457 (6) Smokes 1 pack of cigarettes per day Status: Acute Code(s): F17.210 - NICOTINE DEPENDENCE, CIGARETTES, UNCOMPLICATED SNOMED Code(s): 51210529 (7) Underweight due to inadequate caloric intake Status: Acute Code(s): R63.6 - UNDERWEIGHT SNOMED Code(s): 621412748 (8) Hyponatremia Status: Acute Code(s): E87.1 - HYPO-OSMOLALITY AND HYPONATREMIA SNOMED Code( s): 01144286 (9) Hypokalemia Status: Acute Code(s): E87.6 - HYPOKALEMIA SNOMED Code(s): 88370708 (10) SVT (supraventricular tachycardia) Status: Acute Code(s): I47.1 - SUPRAVENTRICULAR TACHYCARDIA SNOMED Code(s): 4906623 (11) Alcohol withdrawal Status: Acute Code(s): F10.239 - ALCOHOL DEPENDENCE WITH WITHDRAWAL, UNSPECIFIED SNOMED Code(s): 350043279 Plan: 1. Rib fractures x 5: CXR with mild effusion. At this time it does not seem that any internal bleeding is present, no expansion noted. Pain control will be difficult. 2. SVT: Stable on cardizem. BP is now controlled, HR is controlled. Numerous EKG reviewed and he is stable at this time. 3. Pain control: Difficult. He has received PO norco and IV morphine for breakthrough. I will d/c him home on norco 10 QID x 7 days and a second rx to not fill for 1 week for 1 week w/ TID. 4. ETOH abuse: He is drinking 6-12 beer per day. Limited sodium intake. We have reviewed beer potomania and he has not had any sodium spikes. The patient and I spent a total of 40 minutes today talking about his need to stop drinking , his desire for to return and his need to get life in order. I discussed risks of continued ETOH use. I discussed need to get help and to admit that he has a problem. He has no SI/HI, does not want to , but cannot stop drinking. I discussed [facility] as a great first step. 5. Hyponatremia: Chronic. Apparently this predates his hospital stay. He is reasonable at this time. I will still give him 50ml of 3% saline prior to leaving hospital. See PCP tomorrow at 10:30 am. 6. Low normal b12: 342. Consider Serum MMA as outpatient. Contacted his noted PCP Brittany MANZANO [phone] 10:10 am to see if they can get him in to be seen tomorrow. Amalia from [facility] office and I talked today about discharge. CMP from 09/2017 showed sodium of 126, which seems chronic as he is likely not eating and drinking ETOH. He has an appt with Brittany Griffith tomorrow at 10:30 am. If the labs return okay from urine and from the CpK, i will discharge him home with 10 days of pain meds and 14 days of librium but with weekly script only. He needs f/u with [facility]. We will call to start this process so that they are aware of him.
[2017-12-28] MEDS ORDERED: SODIUM CHLORIDE 3% 500 ML IV SCH (10:30)
--- NOTE | 2017-12-28 12:44 | PCM.DC ---
Final Diagnosis: All Active Problems Fall (Acute) Rib fracture (Acute) Alcohol withdrawal (Acute) SVT (supraventricular tachycardia) (Acute) Hypokalemia (Acute) Hyponatremia (Acute) Intractable pain (Acute) Alcohol abuse (Chronic) Smokes 1 pack of cigarettes per day (Chronic) Underweight due to inadequate caloric intake (Chronic) Cystitis (acute). (1) Fall Status: Acute Code(s): W19.XXXA - UNSPECIFIED FALL, INITIAL ENCOUNTER SNOMED Code(s): 1079496 (2) Rib fracture Status: Acute Code(s): S22.39XA - FRACTURE OF ONE RIB, UNSP SIDE, INIT FOR CLOS FX SNOMED Code(s): 56365113 (3) Alcohol abuse Status: Chronic Code(s): F10.10 - ALCOHOL ABUSE, UNCOMPLICATED SNOMED Code(s ): 58689429 (4) Intractable pain Status: Acute Code(s): R52 - PAIN, UNSPECIFIED SNOMED Code(s): 10052407 (5) Elevated blood pressure, situational Status: Resolved Code(s): R03.0 - ELEVATED BLOOD-PRESSURE READING, W/O DIAGNOSIS OF HTN SNOMED Code(s): 23865302 (6) Underweight due to inadequate caloric intake Status: Chronic Code(s): R63.6 - UNDERWEIGHT SNOMED Code(s): 984697660 (7) Cystitis Status: Acute Code(s): N30.90 - CYSTITIS, UNSPECIFIED WITHOUT HEMATURIA SNOMED Code(s): 44944230 (8) Smokes 1 pack of cigarettes per day Status: Chronic Code(s): F17.210 - NICOTINE DEPENDENCE, CIGARETTES, UNCOMPLICATED SNOMED Code(s): 31412303 (9) Alcohol withdrawal Status: Acute Code(s): F10.239 - ALCOHOL DEPENDENCE WITH WITHDRAWAL, UNSPECIFIED SNOMED Code(s): 988466501 (10) Hypokalemia Status: Acute Code(s): E87.6 - HYPOKALEMIA SNOMED Code(s): 85587234 (11) Hyponatremia Status: Acute Code(s): E87.1 - HYPO-OSMOLALITY AND HYPONATREMIA SNOMED Code( s): 43165125 (12) SVT (supraventricular tachycardia) Status: Acute Code(s): I47.1 - SUPRAVENTRICULAR TACHYCARDIA SNOMED Code(s): 2689600 Reason for Hospitalization: Inpatient Admission 12/26/17 Dr. Mak Discharge Admission 12/28/17 Dr. Mak Date of Inpatient Admission 12/26/17: Patient seen in ER, contacted by team at 4:30 pm and seen in room 5 of ER. Patient went to [facility] house to celebrate his birthday and had too much ETOH. He fell, hitting the toilet, striking left flank but not hitting head, aware of fall. Normally drinks beer 6-12 per day. Family had to carry him to his car, he went home and was concerned that he did not come over (he goes over there daily). No ETOH 12/26/17 and none since Monday night. No water in 12 hours either. Came to ER w/ intractable pain, s/p fall and elevated BP ? situational. Family brought him to ER, he was hypoxic 70% O2 upon entry, BP markedly elevated. Pain meds eased the pain. Clonidine given and BP did drop some. ABG completed pH 7.6, P02 43 and 87% RA, PCO29. Teb treatment given, o2 added, gasses improved to 7.481 pH po2 65, pco2 40.4 and O2 94%. Follows with NATACHA Griffith. Heavy tobacco user >1ppd. Arm injury to right historically, circulatory issues and minimal function. Lower rib pain 10/10 on left. Worse with deep inspiration. No history of DT, heavy ETOH use, poor diet. WEight BMI <19. Glucose was 138, WBC 11.83, Sodium 130, K+ mildly low at 3.3 and normal Creatinine at 0.57. Xray showed displaced ribs 6,8,9. CT chest was ordered. Serum ETOH levels ordered. CIWA scale done by me was 2-3. Vitals in ER BP 194/102, HR 97 and RR 22. BMI 18.6. Exam completed, limited use of right arm. Tender along left chest wall. COarse sounds throughout. Pain response. NO SI/HI. Sodium 130 initially, K+ 3.3. Admitted to INPATIENT status s/ fall. Morphine 2mg IV q 4 hours, tylenol 500 TID PRN. Elevate BP Sat in quiet room and I went back to check on him and he was worse, and we recommended inpatient stay at that point instead of the obs that I had mentioned previously in my H+P. ETOH Abuse CAGE +, CIWA negative librium ordered 25mg TID RN. Thiamine to be given IV 100mg daily. Hyponatremia/ hypokalemia recommended repeat labs in am for CBC/CMP. I recommended bolus of hypertonic saline if dropping. Overnight NS +20meq KCL given to patient 75ml/ hr. Tobacco patch placed, lovenox for VTE prophy given. Diet ad lip, up with assist. Recommended Home in am if stable. Hospital Admission day 1: 12/27/17 I met with nursing and reviewed overnight records. Remained afebrile and HR/RR reasonable. Pain prominent [address] chest rib 8-12 posteriorly. BP 212/113 in ER, clonidine given. BP improved to 147 SBP and was 194/102 by am. Pain 10/10, morphine given at 1816 and then 846 in the am on 12/27/17. Pain meds provided 5 hours of pain relief. O2 ~89% on NC. Not breathing deeply , pain prominently. We noted hyperglycemia and A1c completed and normal. CBC WBC 11.57, mildly elevated, Hgb stable at 15.1 without anemia. Overnight sodium dropped to 129. We did give a bolus of 50ml of 3% saline. K+ was normalized at 4.3. Cr okay at 0.57. Calcium, AST and ALT also okay. Remained CIWA 2-3 and no librium used. We decided to add norvasc 5. We had talked about keeping one more day inpatient and then admitting on 12/28/17. We changed him from morphine to norco 7.5 TID. Thiamine given for ETOH use. I+O were good overnight w/ 0.9ml/kg/hr. Hyponatremia monitored and BMP showed improved sodium after bolus. We have ordered serum osmolality and urine osmolality (PENDING). Hypokalemia resolved. Thiamine 100mg IV daily. HTN elevation noted and he was changed to norvasc 5 mg daily. NIcotine patches used for smoking. LImited dietary intake. Drinking pepsi but not eating much food. Goal was home on . 4:05 PM on 12/27/17 I was called to floor as patient had SVT w/ rate of 190-200, Nausea and sweating. We talked about ETOH withdrawal, had not had any librium. This was given at my recommendation, pain meds 2mg IV morphine was given and valsalva/vagal maneuvers as well as carotid rub and ice on face was initiated. He did not respond. The Decision was made to give adenosine 6mg IV rapidly with flush. EKG monitored, telemetry monitored during this event and he was monitored over the next 1 hour. He did convert to sinus tachycardia but would fluctuate from 100's to 200's and decision was made by me to give cardizem 60mg PO BID and to give metoprolol 5mg IV now. HR slowed into the low 100's/high 90' s, he felt better. He was placed on NRBM and EKG x ~5 were run on him during this process. Troponin markers were collected and normal zone 0.0120. We ordered second troponin for 3 hours later. CBC ordered and WBC elevated at 15.50 up from previous labs. Hgb stable, plt stable. Sodium looked good at 130, K+ 3.7, Cr 0.60. Second troponin doubled at 18:21 .0280 and I ordered a third set that returned at 2120 at 0.0150. Patient rested comfortably from that point and telemetry was fine. [place] 10/325 ordered, librium q 4 hours ordered. Day of Discharge/ Hospital Admission Day 2: 12/28/17 Round on patient in am. He wanted to go home. We reviewed the events from yesterday with him. He is feeling better. He has done better with PO norco 10 and morphine PRN. Tele overnight looked good. Denied am labs initially. We did draw from his IV. Sodium down from 130 to 128. We gave him another bolus of 50ml of 3% saline. He has had this problem for a while and it may not be fixable in hospital. Talked with his PA Ana Griffith and she will see him in her office tomorrow. [facility] will see patient monday at 1330. We spent a total of 30 minutes today discussing need to stop drinking ETOH. Discharge time spent >30 minutes. Urine was very dark. UA sent and found to hvae + Nit, +bili, + ketones. We will treat with macrobid x 5 days. Weighed options of cipro but I would worry about cardiac issues, we thought about bactrim but this can worsen hyponatremia. I will opt for macrobid. Urine culture sent. CPK was checked based on urine and negative. He does not want to stay in hospital. We will discharge him from inpatient status to home today. f/U with PCP in office tomorrow and with [facility] on monday. Prognosis at Discharge: Stable, improved. Condition at Discharge: Stable/Improved. Medications at Discharge: Ambulatory Orders Albuterol Sulfate [Proair Hfa] 2 puff IH Q4H 14 Days #1 puff 12/28/17 Chlordiazepoxide HCl [Librium] 25 mg PO DIRECTED 15 Days #20 capsule 1 po BID x 5 days then 1 po QHS PRN x 10 days. Diltiazem HCl [Cardizem] 60 mg PO Q12HR 30 Days #60 tablet 12/28/17 Hydrocodone Bit/Acetaminophen [[place] 10-325] 1 tab PO Q6-8H PRN 7 Days #28 tab 12/28/17 Hydrocodone /Acetaminophen PO TID x 7 days do not fill before 01/03/18. Nitrofurantoin Monohyd/M-Cryst [Macrobid 100 mg Capsule] 100 mg PO BID 5 Days # 10 capsule 12/28/17 Vitamin B-1 [Thiamine] 100 mg PO DAILY 30 Days #30 tablet 12/28/17 Lab/Diagnostics: Laboratory Tests 12/26/17 12/26/17 12/26/17 11:49 12:05 12:05 WBC 11.83 H RBC 4.97 Hgb 15.5 Hct 43.4 MCV 87.3 MCH 31.2 H MCHC 35.7 H RDW Coeff of Abigail 14.2 Plt Count 254 Immature Gran % (Auto) 0.3 Neut % (Auto) 81.0 Lymph % (Auto) 6.3 L Baker % (Auto) 12.2 H Eos % (Auto) 0.0 Baso % (Auto) 0.2 Immature Gran # (Auto) 0.0 Neut # (Auto) 9.6 H Lymph # (Auto) 0.7 Baker # (Auto) 1.4 Eos # (Auto) 0.0 Baso # (Auto) 0.0 Puncture Site R brach O2 Saturation 87.0 L ABG pH 7.60 H* ABG pCO2 29.0 L ABG pO2 43.0 L* ABG HCO3 28.8 H ABG Total CO2 30 H ABG Base Excess 7 H Yo Test + O2 Delivery Device Ra Oxygen Liter Flow FiO2 % 21.0 Sodium 130 L Potassium 3.3 L Chloride 87 L Carbon Dioxide 27 Anion Gap 19.3 BUN 6 L Creatinine 0.57 L Estimated GFR (MDRD) 146.00 BUN/Creatinine Ratio 10.52 Glucose 138 H Hemoglobin A1c Calcium 9.4 Magnesium Total Bilirubin 1.0 AST 28 ALT 16 Alkaline Phosphatase 94 Total Creatine Kinase Troponin I Total Protein 7.7 Albumin 3.8 Globulin 3.9 Albumin/Globulin Ratio 0.97 Vitamin B12 Folate Urine Color Urine Clarity Urine pH Ur Specific [place] Urine Protein Urine Glucose (UA) Urine Ketones Urine Blood Urine Nitrite Urine Bilirubin Urine Urobilinogen Ur Leukocyte Esterase Urine Microscopic RBC Urine Microscopic WBC Ur Squamous Epith Cells Urine Bacteria Plasma/Serum Alcohol < 10.0 12/26/17 12/26/17 12/27/17 12:05 13:30 04:35 WBC 11.57 H RBC 4.82 Hgb 15.1 Hct 42.9 MCV 89.0 MCH 31.3 H MCHC 35.2 RDW Coeff of Abigail 14.2 Plt Count 223 Immature Gran % (Auto) 0.3 Neut % (Auto) 70.8 Lymph % (Auto) 12.4 Baker % (Auto) 16.1 H Eos % (Auto) 0.2 Baso % (Auto) 0.2 Immature Gran # (Auto) 0.0 Neut # (Auto) 8.2 H Lymph # (Auto) 1.4 Baker # (Auto) 1.9 Eos # (Auto) 0.0 Baso # (Auto) 0.0 Puncture Site Lr O2 Saturation 94.0 L ABG pH 7.481 H ABG pCO2 40.4 ABG pO2 65.0 L ABG HCO3 30.2 H ABG Total CO2 31 H ABG Base Excess 7 H Yo Test + O2 Delivery Device Nc Oxygen Liter Flow 2.00 FiO2 % Sodium Potassium Chloride Carbon Dioxide Anion Gap BUN Creatinine Estimated GFR (MDRD) BUN/Creatinine Ratio Glucose Hemoglobin A1c 5.1 Calcium Magnesium Total Bilirubin AST ALT Alkaline Phosphatase Total Creatine Kinase Troponin I Total Protein Albumin Globulin Albumin/Globulin Ratio Vitamin B12 Folate Urine Color Urine Clarity Urine pH Ur Specific [place] Urine Protein Urine Glucose (UA) Urine Ketones Urine Blood Urine Nitrite Urine Bilirubin Urine Urobilinogen Ur Leukocyte Esterase Urine Microscopic RBC Urine Microscopic WBC Ur Squamous Epith Cells Urine Bacteria Plasma/Serum Alcohol 03/21/18 03/21/18 03/21/18 04:35 13:00 16:15 WBC RBC Hgb Hct MCV MCH MCHC RDW Coeff of Abigail Plt Count Immature Gran % (Auto) Neut % (Auto) Lymph % (Auto) Baker % (Auto) Eos % (Auto) Baso % (Auto) Immature Gran # (Auto) Neut # (Auto) Lymph # (Auto) Baker # (Auto) Eos # (Auto) Baso # (Auto) Puncture Site O2 Saturation ABG pH ABG pCO2 ABG pO2 ABG HCO3 ABG Total CO2 ABG Base Excess Yo Test O2 Delivery Device Oxygen Liter Flow FiO2 % Sodium 129 L 131 L Potassium 4.3 3.6 Chloride 92 L 87 L Carbon Dioxide 23 28 Anion Gap 18.3 19.6 BUN 7 7 Creatinine 0.57 L 0.60 Estimated GFR (MDRD) 146.00 138.00 BUN/Creatinine Ratio 12.28 11.66 Glucose 96 104 H Hemoglobin A1c Calcium 9.3 9.2 Magnesium 1.9 Total Bilirubin 1.0 AST 32 ALT 15 Alkaline Phosphatase 81 Total Creatine Kinase 78 Troponin I 0.0120 Total Protein 7.3 Albumin 3.5 Globulin 3.8 Albumin/Globulin Ratio 0.92 Vitamin B12 Folate Urine Color Urine Clarity Urine pH Ur Specific [place] Urine Protein Urine Glucose (UA) Urine Ketones Urine Blood Urine Nitrite Urine Bilirubin Urine Urobilinogen Ur Leukocyte Esterase Urine Microscopic RBC Urine Microscopic WBC Ur Squamous Epith Cells Urine Bacteria Plasma/Serum Alcohol 12/27/17 12/27/17 12/27/17 18:21 18:21 18:21 WBC 15.50 H RBC 4.80 Hgb 15.1 Hct 43.0 MCV 89.6 MCH 31.5 H MCHC 35.1 RDW Coeff of Abigail 14.0 Plt Count 229 Immature Gran % (Auto) 0.2 Neut % (Auto) 80.7 Lymph % (Auto) 8.6 L Baker % (Auto) 10.3 H Eos % (Auto) 0.1 Baso % (Auto) 0.1 Immature Gran # (Auto) 0.0 Neut # (Auto) 12.5 H Lymph # (Auto) 1.3 Baker # (Auto) 1.6 Eos # (Auto) 0.0 Baso # (Auto) 0.0 Puncture Site O2 Saturation ABG pH ABG pCO2 ABG pO2 ABG HCO3 ABG Total CO2 ABG Base Excess Yo Test O2 Delivery Device Oxygen Liter Flow FiO2 % Sodium 130 L Potassium 3.7 Chloride 87 L Carbon Dioxide 29 Anion Gap 17.7 BUN 7 Creatinine 0.60 Estimated GFR (MDRD) 138.00 BUN/Creatinine Ratio 11.66 Glucose 96 Hemoglobin A1c Calcium 9.0 Magnesium Total Bilirubin 0.9 AST 26 ALT 14 Alkaline Phosphatase 81 Total Creatine Kinase Troponin I 0.0280 Total Protein 6.9 Albumin 3.3 L Globulin 3.6 Albumin/Globulin Ratio 0.92 Vitamin B12 Folate Urine Color Urine Clarity Urine pH Ur Specific [place] Urine Protein Urine Glucose (UA) Urine Ketones Urine Blood Urine Nitrite Urine Bilirubin Urine Urobilinogen Ur Leukocyte Esterase Urine Microscopic RBC Urine Microscopic WBC Ur Squamous Epith Cells Urine Bacteria Plasma/Serum Alcohol 12/27/17 12/28/17 12/28/17 21:20 08:05 08:05 WBC 14.86 H RBC 4.35 L Hgb 13.5 L Hct 38.9 L MCV 89.4 MCH 31.0 MCHC 34.7 RDW Coeff of Abigail 14.0 Plt Count 212 Immature Gran % (Auto) 0.4 Neut % (Auto) 80.0 Lymph % (Auto) 8.1 L Baker % (Auto) 11.2 H Eos % (Auto) 0.1 Baso % (Auto) 0.2 Immature Gran # (Auto) 0.1 Neut # (Auto) 11.9 H Lymph # (Auto) 1.2 Baker # (Auto) 1.7 Eos # (Auto) 0.0 Baso # (Auto) 0.0 Puncture Site O2 Saturation ABG pH ABG pCO2 ABG pO2 ABG HCO3 ABG Total CO2 ABG Base Excess Yo Test O2 Delivery Device Oxygen Liter Flow FiO2 % Sodium Potassium Chloride Carbon Dioxide Anion Gap BUN Creatinine Estimated GFR (MDRD) BUN/Creatinine Ratio Glucose Hemoglobin A1c Calcium Magnesium Total Bilirubin AST ALT Alkaline Phosphatase Total Creatine Kinase Troponin I 0.0150 Total Protein Albumin Globulin Albumin/Globulin Ratio Vitamin B12 342 Folate Urine Color Urine Clarity Urine pH Ur Specific [place] Urine Protein Urine Glucose (UA) Urine Ketones Urine Blood Urine Nitrite Urine Bilirubin Urine Urobilinogen Ur Leukocyte Esterase Urine Microscopic RBC Urine Microscopic WBC Ur Squamous Epith Cells Urine Bacteria Plasma/Serum Alcohol 12/28/17 12/28/17 12/28/17 08:05 08:50 10:45 WBC RBC Hgb Hct MCV MCH MCHC RDW Coeff of Abigail Plt Count Immature Gran % (Auto) Neut % (Auto) Lymph % (Auto) Baker % (Auto) Eos % (Auto) Baso % (Auto) Immature Gran # (Auto) Neut # (Auto) Lymph # (Auto) Baker # (Auto) Eos # (Auto) Baso # (Auto) Puncture Site O2 Saturation ABG pH ABG pCO2 ABG pO2 ABG HCO3 ABG Total CO2 ABG Base Excess Yo Test O2 Delivery Device Oxygen Liter Flow FiO2 % Sodium 128 L Potassium 3.5 Chloride 90 L Carbon Dioxide 28 Anion Gap 13.5 BUN 11 Creatinine 0.57 L Estimated GFR (MDRD) 146.00 BUN/Creatinine Ratio 19.29 Glucose 84 Hemoglobin A1c Calcium 8.7 Magnesium Total Bilirubin 0.9 AST 21 ALT 12 Alkaline Phosphatase 66 Total Creatine Kinase 65 Troponin I Total Protein 6.0 L Albumin 2.9 L Globulin 3.1 Albumin/Globulin Ratio 0.94 Vitamin B12 Folate 10.4 Urine Color Yellow Urine Clarity Cloudy Urine pH 6.0 Ur Specific [place] 1.025 Urine Protein 1+ Urine Glucose (UA) Negative Urine Ketones 2+ Urine Blood Negative Urine Nitrite Positive Urine Bilirubin 2+ Urine Urobilinogen 1.0 Ur Leukocyte Esterase Negative Urine Microscopic RBC 0-2 Urine Microscopic WBC 0-2 Ur Squamous Epith Cells 0-2 Urine Bacteria 1+ Plasma/Serum Alcohol CT Chest 12/26/17: Displaced ribs 8-12 posteriorly on left. CXR 12/27/17: Bibasilar atelectasis and mild left pleural effusion. SVT: Telemetry [id number]. Resolved after adenosine, cardizem, metoprolol 5mg IV x 1. Education Provided to Patient and Family: 1. Opiate use: We discussed the R/B/A to opiates. Concern regarding addiction. He will meet with [facility]. Damir completed for [place] and [place], BENZENE WASHER done for [place] and negative. Damir [id number] negative/ clean. 2. SVT: Reviewed role of cardizem. BP is now controlled, HR is controlled. Numerous EKG reviewed and he is stable at this time. May consider Outpatient cardiology eval. 3. ETOH abuse: CAGE positive. Discussed librium, how this could interact with the norco and risks of controlled rx. He has been drinking 6-12 beer per day. Limited sodium intake. We have reviewed need to eat regular meals. As noted in my progress note we spent 40 minutes today talking about his need to stop drinking, his desire for to return and his need to get life in order. I discussed risks of continued ETOH use. I discussed need to get help and to admit that he has a problem. He has no SI/HI, does not want to , but cannot stop drinking. I discussed [facility] as a great first step. He has an appointment on 1330 01/01/18. 4. Hyponatremia: Chronic. Discussed need to consume regular meals. ETOH leads to limited sodium intake but carbs and water. Reviewed issues with beer and sodium. 5. Rib Fractures: Reviewed need for deep breathing and need to stay upright. Follow-ups: 1. Ana MANZANO 10:30 12/29/17 2. [facility] 13:30 01/01/18 3. Return to Er for worsening, SOA, chest pain, falls. Disposition: HOME SELF-CARE Plan: 1. Rib fractures x 5: CXR with mild effusion. At this time it does not seem that any internal bleeding is present, no expansion noted. Pain control is the mc. - I will d/c him home on norco 10 QID x 1 week then another prescription to not fill until next monday for 1 more week of three times daily. 2. SVT: Stable on cardizem. 60 PO BID. Will continue for now. BP is now controlled, HR is controlled. Numerous EKG reviewed and he is stable at this time. 3. ETOH abuse: He is drinking 6-12 beer per day. Limited sodium intake. We have reviewed beer potomania and he has not had any sodium spikes. - Keep Appointment with [facility] monday at 13:30 - Librium outpatient we will provide BID 25mg librium x 5 days and then at bedtime x 10 days. This should provide adequate time to get in to see provider. I mateo provide 1 Rx with the above instructions, written. 4. Hyponatremia: Chronic. F/U with PCP tomorrow 10:30. Regular diet, avoidance of alcohol highly encouraged. Needs good salt/protein/fat in diet. Consider monitoring CMP in 1-2 weeks. 5. Urine + Nitrite and dark color just at discharge. Dx with cystitis. We have started the pt on macrobid BID x 5 days. Risks of cipro with his recent cardiac event last evening. Bactrim can cause/worsen hyponatremia. - We will use macrobid 100mg BID x 5 days. 6. Low normal b12: 342. Consider Serum MMA as outpatient. 7. Diet: Ad radha 8. Discharge: home from inpatient status starting on 12/26/17. 9. Activity: Ad radha 10. Follow-up: - NATACHA Griffith 10:30 tomorrow 12/29/17 - [place] [facility] 13:30 Monday01/01/18. - Return to Er if worsening. 11. New meds. - Cardizem 60mg PO BID - Macrobid 100 BID x 5 days. - [place] written rx provided above (#2 single week prescriptions) - Librium written Rx provided above (15 days of treatment) Discharge Time: >30 minutes.
[2017-12-28 13:06] VITALS: BP 151/80; TEMP 98
[2017-12-28] MEDS: SODIUM CHLORIDE 0.9%-KCL 20 MEQ 1,000 ML IV SCH (16:00)
== END 2017-12-28 15:52 | disposition home or self-care (01) | DRG 184 ==
LOC: ED 10:45 → MEDSURG A 17:41 → UNDOADMOB 17:41 → INTOOBSV 12-27 10:40 → OBSVTOIN 12-27 10:40
PROVIDERS: ADMIT Family Medicine; ATTEND Family Medicine
DX: S22.42XA Multiple fractures of ribs, left side, initial encounter for closed fracture (principal); F10.239 Alcohol dependence with withdrawal, unspecified; I47.1 Supraventricular tachycardia; E87.1 Hypo-osmolality and hyponatremia; J98.11 Atelectasis; J90 Pleural effusion, not elsewhere classified; R06.02 Shortness of breath; R03.0 Elevated blood-pressure reading, without diagnosis of hypertension; R63.6 Underweight; N30.90 Cystitis, unspecified without hematuria; E87.6 Hypokalemia; F17.210 Nicotine dependence, cigarettes, uncomplicated; S29.9XXA Unspecified injury of thorax, initial encounter; W19.XXXA Unspecified fall, initial encounter; Y92.002 Bathroom of unspecified non-institutional (private) residence as the place of occurrence of the external cause; Z79.899 Other long term (current) drug therapy; Z87.828 Personal history of other (healed) physical injury and trauma
CPT/HCPCS: 36415; 80048; 80053; 80307; 81001; 82550; 82607; 82746; 82803; 83036; 83735; 83930; 84484; 85025; 87086; 93005; 93010; 94150; 94640; 96360; 96375; 99223; 99233; 99239; 99284; 99291; 99292

== ENCOUNTER 2017-12-29 12:42 | Outpatient (CLI) ==
--- NOTE | 2017-12-29 13:39 | DI ---
EXAM: PA and lateral views of the chest HISTORY: Hypoxemia COMPARISON: Chest x-ray 12/27/[address] chest 12/26/2017 FINDINGS: The cardiomediastinal silhouette is normal. Lungs are hyperinflated. There is questionab le minimal ground-glass in the left lower lobe. There is no pneumothorax. There is no consolidation , nodule or mass. The osseous structures redemonstrate fractures in the anterior lateral left eighth and ninth ribs IMPRESSION: Minimal ground-glass in the left lung base with adjacent rib fracture may represent atelectasis versu s small contusion.
== END 2017-12-29 12:43 | disposition home or self-care (01) ==
LOC: LAB 12:42
PROVIDERS: ATTEND Physician Assistant
DX: R09.02 Hypoxemia (principal)
CPT/HCPCS: 36415; 80053; 85025

== ENCOUNTER 2018-01-01 10:50 | Inpatient (IN) ==
[2018-01-01] MEDS ORDERED: NORCO 10-325 PO PRN (12:21)
--- NOTE | 2018-01-01 12:27 | ED.PDOC ---
General ED Provider: Dr. KAYLA THOMPSON Chief Complaint: Non-specific Complaint Stated Complaint: hypokalemia Time Seen by Physician: 11:00 Mode of Arrival: Wheelchair Information Source: Patient, Family Exam Limitations: No limitations Primary Care Provider: MARY KAY SOW Nursing and Triage Documentation Reviewed and Agree: Yes Reviewed sepsis parameters & appropriate labs ordered?: Yes System Inflammatory Response Syndrome: Not Applicable Sepsis Protocol: For patient's 13 years and over: Temp is 96.8 and below OR 101 and greater Pulse >90 BPM Resp >20/minute Acutely Altered Mental Status Are patient's symptoms suggestive of a new infection, such as: -Pneumonia -Skin, Soft Tissue -Endocarditis -UTI -Bone, Joint Infection -Implantable Device -Acute Abdominal Infection -Wound Infection -Meningitis -Blood Stream Catheter Infection -Unknown System Inflammatory Response Syndrome: Not Applicable Miscellaneous Complaint Exam - Complex/Multi-System Complaint/Exam Onset/Duration: abnormal k level todat as out pt Symptoms Are: Still present Episodes Lasting: Hours Initial Severity: Moderate Current Severity: Moderate Location of Pain: 0 Pain Radiates to: no pain abnormal serum K level as out pt Associated Signs and Symptoms: Reports: Weakness. Denies: Decreased responsiveness, Confusion, Agitation, Dizziness, Syncope, Headache, Short of air , Cough, Wheezing, Hemoptysis, Chest pain, Palpitations, Edema, Nausea, Vomiting , Diarrhea, Abdominal pain, Back pain, Dysuria, Hematemesis, Melena, Decreased oral intake, Fever, Diaphoresis, Immunocompromised, Anticoagulation Therapy, Recent medication changes, Indwelling medical device assembler, Prior MRSA, Prior VRE, Recent trauma, Remote trauma Recent Echo/LV Function: No Respiratory Distress: None JVD Present: No Tachypnea Present: No Stridor Present: No Abdominal Findings: Present: Normal findings Glascow Coma Scale (see protocol): 15 Meningeal Signs Positive: No Focal Weakness: Present: None Focal Sensory Loss: Present: None Gait: Normal Gag Reflex Present: Yes Babinski Sign: Negative Right, Negative Left Skin Findings: Present: Normal findings Quality Indicators for Cardiac Chest Pain: EKG in 10min. Quality Indicators for AMI: EKG in 10min. Quality Indicator For Non-Traumatic Chest Pain/Syncope: EKG Performed Review of Systems - Review Of Systems Constitutional: Reports: Malaise, Weakness Eyes: Reports: No symptoms Ears, Nose, Mouth, Throat: Reports: No symptoms Respiratory: Reports: No symptoms Cardiac: Reports: No symptoms GI: Reports: No symptoms : Reports: No symptoms Musculoskeletal: Reports: No symptoms Skin: Reports: No symptoms Neurological: Reports: No symptoms Endocrine: Reports: No symptoms Hematologic/Lymphatic: Reports: No symptoms All Other Systems: Reviewed and Negative Past Medical History - Past Medical History Previously Healthy: Yes Endocrine: Reports: Unknown Cardiovascular: Reports: Hypertension Respiratory: Reports: COPD Hematological: Reports: None Gastrointestinal: Reports: None Genitourinary: Reports: None Neuro/Psych: Reports: None Musculoskeletal: Reports: None Cancer: Reports: None - Surgical History General Surgical History: Reports: Unknown - Family History Family History: Reports: Unknown - Social History Smoking Status: Current some day smoker Hx Substance Use: No Alcohol Screening: Heavy Physical Exam - Physical Exam Appearance: Well-appearing, No pain distress, Well-nourished Eyes: GASPER, EOMI, Conjunctiva clear ENT: Ears normal, Nose normal, Oropharynx normal Respiratory: Airway patent, Breath sounds clear, Breath sounds equal, Respirations nonlabored Cardiovascular: RRR, Pulses normal, No rub, No murmur GI/: Soft, Nontender, No masses, Bowel sounds normal, No Organomegaly Musculoskeletal: Normal strength, ROM intact, No edema, No calf tenderness Skin: Warm, Dry, Normal color Neurological: Sensation intact, Motor intact, Reflexes intact, Cranial nerves intact, Alert, Oriented Psychiatric: Affect appropriate, Mood appropriate Interpretation - Auto Leasing Manager Rate: Normal Rhythm: Sinus Ectopy: None - EKG Interpretation Rate: Normal Rhythm: Sinus Ectopy: None [place]: [place] ST Segment: Normal Re-Evaluation - Re-Evaluation Time of Re-Evaluation: 12:27 Status: Unchanged Vital Signs Stable: Yes Pain Level: 0 Appearance: NAD Lungs: Clear Skin: Warm and Dry Neuro: Alert and Oriented X3 CV: RRR Physician Notification - Case Discussed Physician Notified: bai Time of Notification: 12:35 (admitt) Admit To: Inpatient Critical Care Note - Critical Care Note Total Time (mins): 0 Course - Course Hematology/Chemistry: 01/01/18 11:35 01/01/18 11:35 Orders, Labs, Meds: Lab Review 01/01/18 01/01/18 11:35 11:35 WBC 8.03 D RBC 4.28 L Hgb 13.2 L Hct 38.3 L MCV 89.5 MCH 30.8 MCHC 34.5 RDW Coeff of Abigail 13.6 Plt Count 355 Immature Gran % (Auto) 0.5 Neut % (Auto) 58.1 Lymph % (Auto) 17.8 [place] % (Auto) 20.8 H Eos % (Auto) 2.4 Baso % (Auto) 0.4 Immature Gran # (Auto) 0.0 Neut # (Auto) 4.7 Lymph # (Auto) 1.4 [place] # (Auto) 1.7 Eos # (Auto) 0.2 Baso # (Auto) 0.0 Sodium 136 Potassium 2.8 L Chloride 88 L Carbon Dioxide 34 H Anion Gap 16.8 BUN 5 L Creatinine 0.63 Estimated GFR (MDRD) 130.00 BUN/Creatinine Ratio 7.93 Glucose 123 H Calcium 9.5 Total Bilirubin 0.7 AST 18 ALT 16 Alkaline Phosphatase 96 Total Protein 6.5 Albumin 2.9 L Globulin 3.6 Albumin/Globulin Ratio 0.81 Orders Category Date Time Status EKG-(ED ONLY) Stat CARDIO 01/01/18 11:32 Completed CBC W/ AUTO DIFF Stat LAB 01/01/18 11:35 Completed COMPREHENSIVE METABOLIC PANEL Stat LAB 01/01/18 11:35 Completed Albuterol Sulfate [Proair Hfa] MEDS 01/01/18 12:30 Ordered 2 puff IH Q4H Chlordiazepoxide HCl [Librium] MEDS 01/01/18 12:30 Ordered 25 mg PO DIRECTED Diltiazem HCl [Cardizem] MEDS 01/01/18 21:00 Ordered 60 mg PO Q12HR Hydrocodone Bit/Acetaminophen [[place] 10-325] MEDS 01/01/18 12:21 Ordered 1 tab PO Q6-8H PRN Nitrofurantoin Monohyd/M-Cryst [Macrobid] MEDS 01/01/18 21:00 Ordered 100 mg PO BID Vitamin B-1 [Thiamine] MEDS 01/02/18 09:00 Ordered 100 mg PO DAILY Medications Generic Name Dose Route Start Last Admin Trade Name Freq PRN Reason Stop Dose Admin Hydrocodone Bitart/Acetaminophen 1 tab 01/01/18 12:21 [place] 10-325 PO Q6-8H PRN Analgesia Albuterol Sulfate 2 puff 01/01/18 12:30 Proair Hfa IH Q4H JULIA Chlordiazepoxide HCl 25 mg 01/01/18 12:30 Librium PO DIRECTED JULIA Diltiazem HCl 60 mg 01/01/18 21:00 Cardizem PO Q12HR JULIA Nitrofurantoin Macrocrystals 100 mg 01/01/18 21:00 Macrobid PO BID JULIA Thiamine HCl 100 mg 01/02/18 09:00 Thiamine PO DAILY JULIA Vital Signs: Temp Pulse Resp BP Pulse Ox 01/01/18 10:50 97.5 F L 74 18 150/76 H 92 L Departure - Departure Time of Disposition: 12:28 Disposition: HOME SELF-CARE Discharge Problem: Hypokalemia Instructions: Hypokalemia (ED) Condition: Good Pt referred to PMD for follow-up: Yes IPMP verified?: No Additional Instructions: Please call your Family Physician as soon as possible to schedule a follow-up appointment. Allergies/Adverse Reactions: Allergies No Known Allergies Allergy (Verified 01/01/18 11:13) Home Medications: Ambulatory Orders Albuterol Sulfate [Proair Hfa] 2 puff IH Q4H 14 Days #1 puff 12/28/17 Chlordiazepoxide HCl [Librium] 25 mg PO DIRECTED 15 Days #20 capsule Diltiazem HCl [Cardizem] 60 mg PO Q12HR 30 Days #60 tablet 12/28/17 Hydrocodone Bit/Acetaminophen [[place] 10-325] 1 tab PO Q6-8H PRN 7 Days #28 tab 12/28/17 Nitrofurantoin Monohyd/M-Cryst [Macrobid 100 mg Capsule] 100 mg PO BID 5 Days # 10 capsule 12/28/17 Vitamin B-1 [Thiamine] 100 mg PO DAILY 30 Days #30 tablet 12/28/17 Disposition Discussed With: Patient
[2018-01-01] MEDS ORDERED: LIBRIUM PO SCH (12:30)
[2018-01-01] MEDS ORDERED: POTASSIUM CHLORIDE PREMIX RUN 10 MEQ in PREMIX 100 ML WATER 1 BAG IV STA (12:31)
[2018-01-01] MEDS ORDERED: LIBRIUM PO PRN (12:38)
[2018-01-01] MEDS ORDERED: POTASSIUM CHLORIDE PREMIX RUN 100 ML IV ONE (12:46)
[2018-01-01] MEDS: FOLIC ACID 1 MG, INFUVITE ADULT 10 ML, THIAMINE 100 MG in SODIUM CHLORIDE 1,000 ML IV SCH (13:16)
[2018-01-01 14:39] VITALS: BMI 19.5
[2018-01-01] MEDS: PROAIR HFA IH SCH ×3 (15:47→20:51)
[2018-01-01] MEDS: K-DUR PO SCH ×3 (15:48→20:51)
[2018-01-01] MEDS ORDERED: K-DUR PO SCH (17:30)
[2018-01-01] MEDS: CARDIZEM PO SCH (20:51)
[2018-01-01] MEDS: LIBRIUM PO SCH (20:54)
[2018-01-01] MEDS ORDERED: MACROBID PO SCH (21:00)
[2018-01-02] MEDS: PROAIR HFA IH SCH ×6 (00:45→20:38)
[2018-01-02] MEDS ORDERED: INFUVITE ADULT IV ONE (01:24)
[2018-01-02] MEDS ORDERED: FOLIC ACID ONE (01:24)
[2018-01-02] MEDS ORDERED: THIAMINE ONE (01:24)
[2018-01-02] MEDS: FOLIC ACID 1 MG, INFUVITE ADULT 10 ML, THIAMINE 100 MG in SODIUM CHLORIDE 1,000 ML IV SCH ×2 (01:40→15:51)
[2018-01-02] MEDS: CARDIZEM PO SCH ×2 (08:35→20:37)
[2018-01-02] MEDS: LIBRIUM PO SCH ×2 (08:36→20:38)
[2018-01-02] MEDS: K-DUR PO SCH ×4 (08:36→20:38)
[2018-01-02] MEDS: THIAMINE PO SCH (08:36)
--- NOTE | 2018-01-02 08:58 | PCM.PROG ---
Attending Provider: ATTENDING PROVIDER: Dr. NABEEL JORDAN - HOSPITALIST This patient is seen with Cyndi Polo, Nurse Practitioner. DATE OF SERVICE: 01/02/18 SUBJECTIVE: This 57 year old WHITE/ M was hospitalized 01/01/18. The patient is lying in bed resting comfortably. Potassium improved from yesterday. REVIEW OF SYSTEMS: CONSTITUTIONAL: Weakness. No night sweats. No malaise, lethargy. No fever or chills. HEENT: Eyes: No visual changes. No eye pain. No eye discharge. ENT: No runny nose. No epistaxis. No sinus pain. No odynophagia. No congestion. RESPIRATORY: No cough, no congestion. No hemoptysis. No shortness of breath. CARDIOVASCULAR: No angina symptoms. No CHF symptoms. No atypical chest pain for CAD. No palpitations. No orthopnea.. GASTROINTESTINAL: No abdominal pain. No nausea or vomiting. No diarrhea or constipation. No hematemesis. No hematochezia. GENITOURINARY: No urgency. No frequency. No dysuria. No hematuria. No obstructive symptoms. No discharge. No pain. No significant abnormal bleeding. MUSCULOSKELETAL: No musculoskeletal pain; no joint swelling. NEUROLOGICAL: Awake, alert, oriented to time, place and person. No headache. No neck pain. No syncope. No seizures. No dizziness. PSYCHIATRIC: Not anxious. No depression. No suicidal thoughts. No homicidal thoughts. SKIN: No rash. No lesions. No wounds. ENDOCRINE: No unexplained weight loss. No weight gain. HEMATOLOGIC/LYMPHATIC: No anemia. No purpura. No petechiae. No prolonged or excessive bleeding. No palpable lymph nodes. PHYSICAL EXAMINATION: GENERAL: The patient is awake, alert and oriented, lying in bed in no distress. VITAL SIGNS: Temperature 97.6 F, Pulse 71, Respiratory Rate 16, BP 164/69, Pulse Ox 96% HEENT: Head normocephalic, atraumatic. Eyes: Extraocular muscles are intact. Pupils are equal, round and reactive to light and accommodation. Ears: No lesions. Nose appeared normal. Throat: No exudate or erythema. NECK: Supple. No JVD, no carotid bruit. No lymphadenopathy or thyromegaly. LUNGS: Diminished breath sounds. Clear to auscultation. Percussion note normal. Chest symmetrical. HEART: S1, S2, no S3. No murmurs. No cyanosis or clubbing. No ascites. Pulses: Dorsalis pedis and posterior tibial pulses +1 to +2 both sides. ABDOMEN: Soft. Non-tender. Bowel sounds active. No CVA tenderness. No mass felt. EXTREMITIES: No edema. Full range of motion of all extremities, equal. NEUROLOGIC: No focal deficit. Cranial nerves II through XII are grossly intact. No headache, no double vision or headache. SKIN: Not dry. Intact. Turgor-normal. LYMPHATIC: No palpable lymph nodes/no lymphedema. MUSCULOSKELETAL: Normal joints with no swelling. Muscle tone is normal. LAB REVIEW: 01/02/18 04:30 01/02/18 04:30 01/02/18 04:30: Sodium 136, Potassium 3.2 L, Chloride 96 L, Carbon Dioxide 30, Anion Gap 13.2, BUN 5 L, Creatinine 0.54 L, Estimated GFR (MDRD) 156.00, BUN/ Creatinine Ratio 9.25, Glucose 148 H D, Calcium 8.8, Total Bilirubin 0.5, AST 18 , ALT 14, Alkaline Phosphatase 94, Total Protein 5.8 L, Albumin 2.6 L, Globulin 3.2, Albumin/Globulin Ratio 0.81 01/02/18 04:30: WBC 7.18, RBC 3.87 L, Hgb 12.2 L, Hct 34.9 L, MCV 90.2, MCH 31.5 H, MCHC 35.0, RDW Coeff of Abigail 13.7, Plt Count 331, Immature Gran % (Auto) 0.3, Neut % (Auto) 55.0, Lymph % (Auto) 22.8, [place] % (Auto) 18.2 H, Eos % (Auto ) 3.3, Baso % (Auto) 0.4, Immature Gran # (Auto) 0.0, Neut # (Auto) 3.9, Lymph # (Auto) 1.6, [place] # (Auto) 1.3, Eos # (Auto) 0.2, Baso # (Auto) 0.0 01/01/18 15:56: Sodium 136, Potassium 3.0 L, Chloride 90 L, Carbon Dioxide 33 H , Anion Gap 16.0, BUN 5 L, Creatinine 0.53 L, Estimated GFR (MDRD) 159.00, BUN/ Creatinine Ratio 9.43, Glucose 98, Calcium 9.0 ASSESSMENT: 1. Hypokalemia 2. Alcohol abuse, chronic 3. Smoker PLAN: 1. D/C Macrobid 2. Repeat UA 3. Continue potassium through tomorrow Plan and coordination of the patient's care discussed in the presence of Paper Spooler and nurse. CONDITION: Stable SCRIBED BY: GARRET SERNA Fisher Spear scribed while in presence of service performed by Dr. Jordan/Cyndi Polo APRN on 01/02/18 ([id number])
[2018-01-03] MEDS: PROAIR HFA IH SCH ×4 (01:10→12:48)
[2018-01-03] MEDS ORDERED: INFUVITE ADULT IV ONE (01:58)
[2018-01-03] MEDS ORDERED: THIAMINE ONE (01:58)
[2018-01-03] MEDS ORDERED: FOLIC ACID ONE (01:58)
[2018-01-03] MEDS: FOLIC ACID 1 MG, INFUVITE ADULT 10 ML, THIAMINE 100 MG in SODIUM CHLORIDE 1,000 ML IV SCH (03:11)
[2018-01-03] MEDS: LIBRIUM PO SCH (08:51)
[2018-01-03] MEDS: THIAMINE PO SCH (08:52)
[2018-01-03] MEDS: CARDIZEM PO SCH (08:52)
[2018-01-03] MEDS: K-DUR PO SCH ×2 (08:52→12:47)
[2018-01-03 09:43] VITALS: BP 173/92; TEMP 97.7
--- NOTE | 2018-01-03 11:19 | PCM.PROG ---
Attending Provider: [facility] DATE [facility] SERV[facility]: 01/03/18 SUBJECTIVE: This 57 year old WHITE/ M was hospitalized 01/01/18 with hypokalemia. She also had fallen with fractures of rib cage. Condition improved with electrolytes normal. He is feeling better, no fever, no chills. Appetite is better. No DT's or tremors. REVIEW OF SYSTEMS: CONSTITUTIONAL: No night sweats. No fatigue, malaise, lethargy. No fever or chills. HEENT: Eyes: No visual changes. No eye pain. No eye discharge. ENT: No runny nose. No epistaxis. No sinus pain. No odynophagia. No congestion. RESPIRATORY: No cough, no congestion. No hemoptysis. No shortness of breath. CARDIOVASCULAR: No angina symptoms. No CHF symptoms. No atypical chest pain for CAD. No palpitations. No orthopnea.. GASTROINTESTINAL: Appetite is better. No abdominal pain. No nausea or vomiting. No diarrhea or constipation. No hematemesis. No hematochezia. GENITOURINARY: No urgency. No frequency. No dysuria. No hematuria. No obstructive symptoms. No discharge. No pain. No significant abnormal bleeding. MUSCULOSKELETAL: No musculoskeletal pain; no joint swelling. NEUROLOGICAL: Mental status is normal. Awake, alert, oriented to time, place and person. No headache. No neck pain. No syncope. No seizures. No dizziness. PSYCHIATRIC: Not anxious. No depression. No suicidal thoughts. No homicidal thoughts. SKIN: No rash. No lesions. No wounds. ENDOCRINE: No unexplained weight loss. No weight gain. HEMATOLOGIC/LYMPHATIC: No anemia. No purpura. No petechiae. No prolonged or excessive bleeding. No palpable lymph nodes. PHYSICAL EXAMINATION: GENERAL: The patient is awake, alert and oriented, lying in bed in no distress. VITAL SIGNS: Temperature 97.4 F, Pulse 71, Respiratory Rate 20, BP 142/82, Pulse Ox 97% HEENT: Head normocephalic, atraumatic. Eyes: Extraocular muscles are intact. Pupils are equal, round and reactive to light and accommodation. Ears: No lesions. Nose appeared normal. Throat: No exudate or erythema. NECK: Supple. No JVD, no carotid bruit. No lymphadenopathy or thyromegaly. LUNGS: Clear to auscultation. Percussion note normal. Chest symmetrical. HEART: S1, S2, no S3. No murmurs. No cyanosis or clubbing. No ascites. Pulses: Dorsalis pedis and posterior tibial pulses +1 to +2 both sides. ABDOMEN: Soft. Non-tender. Bowel sounds active. No CVA tenderness. No mass felt. EXTREMITIES: No edema. Full range of motion of all extremities, equal. NEUROLOGIC: No focal deficit. Cranial nerves II through XII are grossly intact. No headache, no double vision or headache. SKIN: Warm and dry. Intact. Turgor-normal. LYMPHATIC: No palpable lymph nodes/no lymphedema. MUSCULOSKELETAL: Normal joints with no swelling. Muscle tone is normal. LAB REVIEW: 01/03/18 04:30 01/03/18 04:30 01/03/18 04:30: Sodium 135 L, Potassium 4.1, Chloride 101, Carbon Dioxide 23, Anion Gap 15.1, BUN 4 L, Creatinine 0.52 L, Estimated GFR (MDRD) 163.00, BUN/ Creatinine Ratio 7.69, Glucose 101 H, Calcium 8.8, Total Bilirubin 0.5, AST 20, ALT 14, Alkaline Phosphatase 96, Total Protein 6.0 L, Albumin 2.7 L, Globulin 3.3, Albumin/Globulin Ratio 0.82 01/03/18 04:30: WBC 8.90, RBC 3.95 L, Hgb 12.1 L, Hct 35.4 L, MCV 89.6, MCH 30.6 , MCHC 34.2, RDW Coeff of Abigail 14.0, Plt Count 379, Neutrophils % (Manual) 64.0, Lymphocytes % (Manual) 22.0, Monocytes % (Manual) 10.0, Eosinophils % (Manual) 4.0, Anisocytosis Not present 01/02/18 14:25: Urine Color Yellow, Urine Clarity Clear, Urine pH 8.5, Ur Specific [place] 1.015, Urine Protein Negative, Urine Glucose (UA) Negative, Urine Ketones Negative, Urine Blood Negative, Urine Nitrite Negative, Urine Bilirubin Negative, Urine Urobilinogen >=8.0, Ur Leukocyte Esterase Negative ASSESSMENT: Please see below. 1. Hypokalemia resolved 2. Left rib fractures stable 3. Chronic lung disease 4. Alcoholism 5. History of SVT 6. Abnormal EKG with poor R wave progression LVH PLAN: 1. Continue same mediations 2. D/C Nitrofurantoin 3. The patient refuses any help for alcoholism 4. Counseling for smoking done 5. Echo pending 6. Up and about before discharge 7. D/ C IV fluids 8. D/C telemetry 9. Discharge the patient home Plan and coordination of the patient's care discussed in the presence of Ice Bag Assembler and nurse. CONDITION: Stable SCRIBED BY: GARRET SERNA Lifter/Driver scribed while in presence of service performed by Dr[facility] on 01/03/18 ([id number])
--- NOTE | 2018-01-03 12:23 | CM.DICTOOL ---
ADMISSION: 01/01/18 12:59 DISCHARGE: 01/03/18 FINAL DIAGNOSIS HYPOKALEMIA - RESOLVED HISTORY OF: RIB FRACTURES, LEFT 6, 8 AND 9 - STABLE COPD PULMONARY CONTUSION ALCOHOL ABUSE SVT (12/27/17) -PROXYSMAL TOBBACO USE S/P RIGHT ARM VEIN GRAFT SLEEP APNEA OSTEOARTHRITIS ABNORMAL EKG WITH POOR R WAVE PROGRESSING LVH LAST VITALS Temp Pulse Resp BP Pulse Ox 97.7 F 81 20 173/92 H 95 01/03/18 09:42 01/03/18 09:42 01/03/18 09:42 01/03/18 09:42 01/03/18 09:42 TAKE THESE MEDICATIONS AT HOME Hydrocodone Bitart/Acetaminophen ([place] 10-325) 1 tab PO Q6-8H PRN PRN Reason: Analgesia Albuterol Sulfate (Proair Hfa) 2 puff IH Q4H [facility] Last Admin: 01/03/18 08:51 Dose: 2 puff Chlordiazepoxide HCl (Librium) 25 mg PO BEDTIME JULIA Diltiazem HCl (Cardizem) 60 mg PO Q12HR [facility] Last Admin: 01/03/18 08:52 Dose: 60 mg Potassium Chloride ([place]) 10 meq PO DAILY JULIA Thiamine HCl (Thiamine) 100 mg PO DAILY [facility] Last Admin: 01/03/18 08:52 Dose: 100 mg ALLERGIES No Known Allergies Allergy (Verified 01/01/18 11:13) DISCONTINUED MEDICATIONS NONE NEW PRESCRIPTIONS: NEW MEDICATION: 1. K-TAB TAKE 1 CAPSULE DAILY FOR 10 DAYS. SMOKING: STOP SMOKING DISEASE SPECIFIC EDUCATION: HYPOKALEMIA MEDICATIONS ALCOHOL ABUSE SMOKING CESSATION DIET ACTIVITY LAB REVIEW: 01/03/18 04:30 01/03/18 04:30 01/03/18 04:30: Sodium 135 L, Potassium 4.1, Chloride 101, Carbon Dioxide 23, Anion Gap 15.1, BUN 4 L, Creatinine 0.52 L, Estimated GFR (MDRD) 163.00, BUN/ Creatinine Ratio 7.69, Glucose 101 H, Calcium 8.8, Total Bilirubin 0.5, AST 20, ALT 14, Alkaline Phosphatase 96, Total Protein 6.0 L, Albumin 2.7 L, Globulin 3.3, Albumin/Globulin Ratio 0.82 01/03/18 04:30: WBC 8.90, RBC 3.95 L, Hgb 12.1 L, Hct 35.4 L, MCV 89.6, MCH 30.6 , MCHC 34.2, RDW Coeff of Abigail 14.0, Plt Count 379, Neutrophils % (Manual) 64.0, Lymphocytes % (Manual) 22.0, Monocytes % (Manual) 10.0, Eosinophils % (Manual) 4.0, Anisocytosis Not present 01/02/18 14:25: Urine Color Yellow, Urine Clarity Clear, Urine pH 8.5, Ur Specific [place] 1.015, Urine Protein Negative, Urine Glucose (UA) Negative, Urine Ketones Negative, Urine Blood Negative, Urine Nitrite Negative, Urine Bilirubin Negative, Urine Urobilinogen >=8.0, Ur Leukocyte Esterase Negative PLAN: DISCHARGE HOME TODAY 01/03/18 CONTINUE HOME MEDICATIONS PER NURSING SHEET NEW MEDICATION: 1. K-TAB TAKE 1 CAPSULE DAILY FOR 10 DAYS. DIET TOLERATED. DRINK PLENTY OF FLUIDS ESPECIALLY WATER. ACTIVITY TOLERATED. DO NOT DRINK ALCOHOL. YOUR APPOINTMENT WITH MENTAL HEALTH HAS BEEN RESCHEDULED FOR MondayJanuary AT 830 AM. YOU NEED TO TAKE INSURANCE CARD, PROOF OF INCOME AND SOCIAL SECURITY CARD WITH YOU. FOLLOW UP WITH JOHNY SOW SOON POSSIBLE. CALL FOR APPOINTMENT. PATIENT IS A FULL CODE. SITTING UP IN BED. ALERT AND ORIENTED X 4. GRANDDAUGHTER AT BEDSIDE. DR. JORDAN INTO SEE PATIENT. PATIENT STATES FEELS ALOT BETTER AND WANTS TO GO HOME. DR. JORDAN DISCUSSED PLAN OF CARE INCLUDING LAB RESULTS, ECHO THIS AFTERNOON AND PROBABLE DISCHARGE AFTERWARDS. PATIENT VERBALIZES UNDERSTANDING AND AGREEMENT. APPETITE IS FAIR. VITAL SIGNS ARE STABLE. HAS BEEN AFEBRILE. POX 97% ON ROOM AIR. SKIN TURGOR POOR. HEART TONES ARE REGULAR WITH TELEMETRY REVEALING SINUS RHYTHM. NO C/O PAIN OR DISCOMFORT. LUNGS ARE COARSE AND DIMINISHED. HAS NON- PRODUCTIVE COUGH THAT IS CHRONIC IN NATURE. NO DYSPNEA NOTED. ABDOMEN IS SOFT, NON-TENDER WITH BOWEL SOUNDS POSITIVE IN ALL 4 QUADS. REFUSED TO TELL STAFF ABOUT LAST BM. PEDAL PULSES POSITIVE WITHOUT EDEMA. HAS IV OF NORMAL SALINE WITH MVI, FOLIC ACID AND THIAMINE AT 83ML/HR IN LEFT FOREARM SITE IS CLEAR. IS FALL RISK WITH FALL PRECAUTIONS IN USE. IS A 1 PERSON ASSIST WITH ACTIVITIES OF DAILY LIVING. AT TIMES WILL NOT CONVERSE WITH STAFF. REFUSES TO ANSWER QUESTIONS. WILL LOOK AT STAFF THEN CLOSE EYES AND IGNORE THEM. DR. NABEEL JORDAN MD Lalitha DOMINGUEZ APRN
--- NOTE | 2018-01-03 14:05 | HP ---
DATE OF SERVICE: 01/01/18 HISTORY OF PRESENT ILLNESS: This is a 57-year-old white male who presented to the emergency room after seeking care from Brittany Griffith, nurse practitioner, who had done labs and his potassium was 2.9 in her office. She instructed him to go to the emergency room. He has a long history of alcohol abuse. He was recently hospitalized and discharged on 12/28 after being intoxicated, having fell, experiencing five rib fractures and had some hyponatremia. PAST MEDICAL HISTORY: Alcohol abuse Hypertension Last hospitalization had SVT which resolved, is currently on Cardizem and is controlled. He is underweight Recent 5 rib fractures PAST SURGICAL HISTORY: Jaw surgeries REVIEW OF SYSTEMS: CONSTITUTIONAL: Positive for weakness. No night sweats. No fatigue, malaise, lethargy. No fever or chills. HEENT: Eyes: No visual changes. No eye pain. No eye discharge. ENT: No runny nose. No epistaxis. No sinus pain. No sore throat. No odynophagia. No ear pain. No congestion. RESPIRATORY: No cough, no congestion. No hemoptysis. No shortness of breath. CARDIOVASCULAR: No angina symptoms. No CHF symptoms. No atypical chest pain for CAD. No palpitations. No orthopnea. GASTROINTESTINAL: No abdominal pain. No nausea or vomiting. No diarrhea or constipation. No hematemesis. No hematochezia. GENITOURINARY: No urgency. No frequency. No dysuria. No hematuria. No obstructive symptoms. No discharge. No pain. No significant abnormal bleeding. MUSCULOSKELETAL: Rib pain. NEUROLOGICAL: No headache. No neck pain. No syncope. No seizures. No dizziness. PSYCHIATRIC: Not anxious. No depression. No suicidal thoughts. No homicidal thoughts. SKIN: No rash. No lesions. No wounds. ENDOCRINE: No unexplained weight loss. No weight gain. HEMATOLOGIC/LYMPHATIC: No anemia. No purpura. No petechiae. No prolonged or excessive bleeding. No palpable lymph nodes. PERSONAL/FAMILY/SOCIAL HISTORY: Family history - thirteen brothers and sisters. Two brothers are . His mother is living, positive family history for cancer. Social History: The patient currently resides alone. He is a heavy drinker, drinking about 12 beers a day. He denies any ilicit drug use. He is a smoker. MEDICATIONS: (HOME) Librium 25 mg p.o. as directed Cardizem 60 mg p.o. q.12hr Macrobid 100 mg p.o. b.i.d. for five days Thiamine 100 mg p.o. daily ProAir Hfa two puffs IH q.4h 14 days [place] 10-325 one tab p.o. q.6-8hr p.r.n. 7 days ALLERGIES: NKDA PHYSICAL EXAMINATION: VITAL SIGNS: Temperature 97.5, heart rate 74, respirations 18, BP 150/76, pulse ox 92%. The patient is pale, underweight. HEENT: Head normocephalic, atraumatic. Eyes: Extraocular muscles are intact. Pupils are equal, round and reactive to light and accommodation. Ears: No lesions. Nose appeared normal. Throat: No exudate or erythema. NECK: Supple. No JVD, no carotid bruit. No lymphadenopathy or thyromegaly. LUNGS: Diminished breath sounds bilaterally. Clear to auscultation. Percussion note normal. Chest symmetrical. HEART: S1, S2, no S3. No murmurs. No cyanosis or clubbing. No ascites. Pulses: Dorsalis pedis and posterior tibial pulses +1 to +2 both sides. ABDOMEN: Soft. Nontender. Bowel sounds active. No CVA tenderness. No mass felt. EXTREMITIES: No edema. Full range of motion of all extremities, equal. NEUROLOGIC: No focal deficit. Cranial nerves II through XII are grossly intact. No headache, no double vision or headache. SKIN: Not dry. Intact. Turgor - normal. LYMPHATIC: No palpable lymph nodes/no lymphedema. MUSCULOSKELETAL: Normal joints with no swelling. Muscle tone is normal. LAB VALUES IN THE EMERGENCY ROOM: Hemoglobin 13.2, hematocrit 38.3, platelets 355, white count 8.03, sodium 136, potassium 2.8, BUN 5, creatinine 0.63, glucose 123. ASSESSMENT: 1. HYPOKALEMIA 2. HYPERTENSION 3. ALCOHOL ABUSE 4. SMOKER PLAN: 1. Admit 2. Oral potassium 20 mEq q.i.d 3. IV Fluids 4. D5 1/2 NS at 50 cc/hr 5. Chest x-ray 6. Routine telemetry orders 7. Regular diet 8. Librium 25 mg b.i.d. scheduled 9. Continue home medications TIME SPENT: More than 70 minutes. MTDD
[2018-01-04] MEDS ORDERED: LIBRIUM PO SCH (21:00)
--- NOTE | 2018-01-05 13:41 | ECHO2D ---
Date of Exam: 01/03/18 Ordering Physician: DR. NABEEL JORDAN/ MARY KAY SOW APRN Room #: 115 Reason for Echo: ABNORMAL EKG, HISTORY OF SVT M-Mode Normal Adult Results LV Dimensions Normal Adult Results AoV Opening excursions >1.6 >1.6 LVEDD-base- 3.5-5.8 4.3 Ao root dimensions 2.0-3.7 3.6 LVESD-base- 3.1-4.6 L. Atrium dimensions 1.9-3.8 2.8 Post. Wall thickness 0.8-1.1 1.1 IV septum (thickness) 0.7-1.2 1.2 Post. Wall excursion 0.72-1.3 NORMAL Septal motion NORMAL Systolic motion R. Ventricular cavity 1.5-2.0 NORMAL LVEF 60% 57% Paradoxical septal wall motion NORMAL 2-D : MITRAL VALVE PROLAPSE NOTED ON LEFT PARASTERNAL LONG AXIS AND APICAL FOUR CHAMBER VIEW. NORMAL LEFT VENTRICULAR CONTRACTILITY--NO EFFUSION, NO THROMBUS, LEFT VENTRICLE AND LEFT ATRIAL SIZE NORMAL COLOR FLOW: MILD AORTIC REGURGITATION AND MITRAL REGURGITATION M-MODE: MV: MITRAL VALVE PROLAPSE--LATE SYSTOLIC AV: NORMAL TV: NORMAL PV: NORMAL CHAMBER SIZE: NORMAL WALL MOTION: NORMAL PERICARDIUM: NORMAL INTERPRETATION: 1. BORDERLINE LEFT VENTRICULAR HYPERTROPHY 2. MITRAL VALVE PROLAPSE LATE SYSTOLIC 3. MILD MITRAL REGURGITATION AND AORTIC REGURGITATION 4. NORMAL LEFT VENTRICULAR CONTRACTILITY 5. NORMAL LEFT ATRIAL AND LEFT VENTRICLE SIZE MTDD
--- NOTE | 2018-01-09 15:00 | PN ---
DATE OF SERVICE: 01/01/18 SUBJECTIVE: 57 year old white male who is an alcoholic was hospitalized with fall with rib fractures. He also has potassium of 2.8. The patient is on Librium. The patient would be watched for DT's. The patient says that last drink was on Monday. The patient is on IV fluids with IV supplement of Potassium. He is also on Albuterol , Diltazem and Nitrofurantoin will be discontinued. Counseling for alcohol advised, AA, Alcohol Anonymous [employer] advised to join and he declined. PHYSICAL EXAMINATION: HEENT: Head normocephalic, atraumatic. Eyes: Extraocular muscles are intact. Pupils are equal, round and reactive to light and accommodation. Ears: No lesions. Nose appeared normal. Throat: No exudate or erythema. NECK: Supple. No JVD, no carotid bruit. No lymphadenopathy or thyromegaly. LUNGS: Decreased breath sounds but clear to auscultation. Percussion note normal. Chest symmetrical. HEART: S1, S2, no S3. No murmurs. No cyanosis or clubbing. No ascites. Pulses: Dorsalis pedis and posterior tibial pulses +1 to +2 both sides. ABDOMEN: Soft. Nontender. Bowel sounds active. No CVA tenderness. No mass felt. EXTREMITIES: No edema. Full range of motion of all extremities, equal. NEUROLOGIC: No focal deficit. Cranial nerves II through XII are grossly intact. No headache, no double vision or headache. SKIN: Not dry. Intact. Turgor - normal. LYMPHATIC: No palpable lymph nodes/no lymphedema. MUSCULOSKELETAL: Normal joints with no swelling. Muscle tone is normal. ASSESSMENT: 1. Hypokalemia 2. Alcoholism 3. Chronic lung disease 4. Rib fractures. PLAN: 1. Given Potassium supplement 2. Daily CBC and CMP 3. Watch for DT's TIME SPENT: More than 30 minutes. Plan and coordination of the patient's care discussed in the presence of nurse. LUPE
--- NOTE | 2018-01-09 15:04 | PN ---
DATE OF SERVICE: 01/02/18 SUBJECTIVE: The patient was seen and examined with Nurse Practitioner. The patient's condition has improved. He is stable. His hydration status is improved. He has no DT's. The patient is threatening to sign out because he wants to go out and drink very likely. Strongly advised to stay in the hospital. AA support group refused. PHYSICAL EXAMINATION: GENERAL: The patient is oriented to time, place and person. HEENT: Head normocephalic, atraumatic. Eyes: Extraocular muscles are intact. Pupils are equal, round and reactive to light and accommodation. Ears: No lesions. Nose appeared normal. Throat: No exudate or erythema. NECK: Supple. No JVD, no carotid bruit. No lymphadenopathy or thyromegaly. LUNGS: Decreased breath sounds but clear to auscultation. Percussion note normal. Chest symmetrical. HEART: S1, S2, no S3. No murmurs. No cyanosis or clubbing. No ascites. Pulses: Dorsalis pedis and posterior tibial pulses +1 to +2 both sides. The patient has LVH, poor R wave progression. Needs echocardiogram. ABDOMEN: Soft. Nontender. Bowel sounds active. No CVA tenderness. No mass felt. EXTREMITIES: No edema. Full range of motion of all extremities, equal. NEUROLOGIC: No focal deficit. Cranial nerves II through XII are grossly intact. No headache, no double vision or headache. SKIN: Not dry. Intact. Turgor - normal. LYMPHATIC: No palpable lymph nodes/no lymphedema. MUSCULOSKELETAL: Normal joints with no swelling. Muscle tone is normal. TIME SPENT: More than 30 minutes. Plan and coordination of the patient's care discussed in the presence of nurse. LUPE
--- NOTE | 2018-01-09 15:13 | DS ---
DATE OF SERVICE: 01/03/18 FINAL DIAGNOSIS: 1. Hypokalemia, resolved 2. History of rib fractures, left 6,8 and 9 stable 3. COPD 4. Pulmonary contusion 5. Alcohol abuse 6. SVT (12/27/17)-Paroxysmal 7. Tobacco use 8. Status post right arm vein graft 9. Sleep apnea 10.Osteoarthritis 11.Abnormal EKG with poor R wave progressing LVH LAST VITALS: Temperature 97.7, pulse 81, respiratory rate 20, blood pressure 173/92 and pulse ox 95%. DISCHARGE INSTRUCTIONS: Discharge home today. Continue home medications as per nursing sheet. Do not drink alcohol. Appointment with Mental Health as been rescheduled for MondayJanuary 09 at 8:30am. Need to take insurance card, proof of income and social security card with you. Followup with Gale Griffith as soon as possible. MEDICATIONS AT DISCHARGE: [place] 10-325 one tablet PO Q 6-8 hours PRN ProAir Hfa 2 puff IH Q 4 hours Librium 25mg Po bedtime Cardizem 60mg PO Q 12 hours K-Dur 10meq Po daily Thiamine 100mg PO daily ALLERGIES: No known allergies NEW PRESCRIPTIONS: K-Tab take one capsule daily for 10 days. DIET INSTRUCTIONS: As tolerated. Drink plenty of fluids especially water. ACTIVITY: As tolerated. SMOKING: Stop Smoking DISEASE SPECIFIC EDUCATION: Hypokalemia Medications Alcohol abuse Smoking cessation Diet Activity HOSPITAL COURSE: 57 year old white male hospitalized with hypokalemia. The patient had some left sided rib cage pain. The patient was given Potassium supplements. He says that he quit drinking alcohol especially beer two days prior to hospitalization. The patient was oriented to time, place and person. He was given IV fluids, IV Potassium was given and oral Potassium supplements were also given 80meq PO potassium for three days. On admission the patient's potassium was 2.8. He was monitored for any arrhythmia which could happen with hypokalemia. The patient did not have any arrhythmias. His rhythm with sinus. His EKG's are normal with sinus rhythm with LVH with practically no R waves in B1, B2 and B3. He underwent echocardiogram which showed borderline LVH with enlarged LA cavity and mitral valve prolapse. RV cavity was enlarged and the patient had PFT done in October which showed Mild COPD. The patient was explained about this findings. Counseling for smoking done. The patient refused to seek any help for alcohol addiction. During the stay in the hospital he was uncooperative. The patient was up and about at the time of discharge. The patient did not have any DT's. He was oriented to time, place and person throughout the stay in the hospital. Condition at the time of discharge is stable. The patient was strongly advised to followup with the primary care within 2-3 days of discharge. Alcohol and it's effects on different body organs discussed. He is advised to have blood pressure monitored. BP goal was 130/80. He was explained about echo findings. CONDITION: Stable. TIME SPENT: More than 60 minutes. MTDD
--- NOTE | 2018-01-09 15:14 | PN ---
01/01/18: Level 5 01/02/18: Intermediate 01/03/18: D as in discharge MTDD
== END 2018-01-03 13:10 | disposition home or self-care (01) | DRG 641 ==
LOC: ED 10:50 → MEDSURG B 12:59
PROVIDERS: ADMIT Internal Medicine; ATTEND Internal Medicine
DX: E87.6 Hypokalemia (principal); I47.1 Supraventricular tachycardia; S22.42XD Multiple fractures of ribs, left side, subsequent encounter for fracture with routine healing; S27.329D Contusion of lung, unspecified, subsequent encounter; F10.10 Alcohol abuse, uncomplicated; I51.7 Cardiomegaly; I34.1 Nonrheumatic mitral (valve) prolapse; R94.31 Abnormal electrocardiogram [ECG] [EKG]; R53.1 Weakness; R53.81 Other malaise; I10 Essential (primary) hypertension; J44.9 Chronic obstructive pulmonary disease, unspecified; G47.30 Sleep apnea, unspecified; M19.90 Unspecified osteoarthritis, unspecified site; F17.210 Nicotine dependence, cigarettes, uncomplicated; Z79.899 Other long term (current) drug therapy; Z98.890 Other specified postprocedural states; W19.XXXD Unspecified fall, subsequent encounter
CPT/HCPCS: 36415; 80048; 80053; 80307; 81001; 85007; 85025; 93005; 93010; 96361; 96365; 99223; 99232; 99239; 99284

== ENCOUNTER 2018-01-09 11:05 | Outpatient (CLI) | payer OTHER | END 2018-01-09 11:06 | disposition home or self-care (01) | LOC: CAR 11:05 | PROVIDERS: ATTEND Physician Assistant | DX: R00.8 Other abnormalities of heart beat (principal) | CPT/HCPCS: 93005; 93010 ==

== ENCOUNTER 2018-03-28 06:27 | Outpatient (CLI) ==
--- NOTE | 2018-03-29 08:24 | ECHO2D ---
Date of Exam: 03/28/18 Ordering Physician: DR. NABEEL JORDAN/ MARY KAY SOW APRN Room #: OP Reason for Echo: PALPITATIONS, ABNORMAL EKG, COPD, MVP M-Mode Normal Adult Results LV Dimensions Normal Adult Results AoV Opening excursions >1.6 >1.6 LVEDD-base- 3.5-5.8 4.3 Ao root dimensions 2.0-3.7 3.8 LVESD-base- 3.1-4.6 L. Atrium dimensions 1.9-3.8 3.6 Post. Wall thickness 0.8-1.1 1.1 IV septum (thickness) 0.7-1.2 1.1 Post. Wall excursion 0.72-1.3 NORMAL Septal motion NORMAL Systolic motion R. Ventricular cavity 1.5-2.0 NORMAL LVEF 60% 56% Paradoxical septal wall motion NORMAL 2-D : MITRAL VALVE PROLAPSE NOTED LEFT PARASTERNAL LONG AXIS AND APICAL FOUR CHAMBER VIEW--NORMAL LEFT VENTRICULAR CONTRACTILITY--NO EFFUSION, NO THROMBUS, NORMAL AORTIC, TRICUSPID AND MITRAL VALVES COLOR FLOW: MILD MITRAL REGURGITATION AND AORTIC REGURGITATION M-MODE: MV: MITRAL VALVE PROLAPSE LATE SYSTOLIC AV: NORMAL TV: NORMAL PV: CHAMBER SIZE: NORMAL WALL MOTION: NORMAL PERICARDIUM: NORMAL INTERPRETATION: 1. BORDERLINE LEFT VENTRICULAR HYPERTROPHY 2. MITRAL VALVE PROLAPSE LATE SYSTOLIC WITH MILD MITRAL REGURGITATION 3. NORMAL LEFT VENTRICULAR CONTRACTILITY 4. NORMAL LEFT VENTRICLE SIZE MTDD
== END 2018-03-28 06:28 | disposition home or self-care (01) ==
LOC: CAR 06:27
PROVIDERS: ATTEND Internal Medicine
DX: R94.31 Abnormal electrocardiogram [ECG] [EKG] (principal); J44.9 Chronic obstructive pulmonary disease, unspecified; R00.2 Palpitations

== ENCOUNTER 2018-03-30 09:00 | Outpatient (CLI) | END 2018-03-30 09:01 | disposition home or self-care (01) | LOC: CAR 09:00 | PROVIDERS: ATTEND Internal Medicine | DX: R06.02 Shortness of breath (principal); J44.9 Chronic obstructive pulmonary disease, unspecified ==

== ENCOUNTER 2018-04-02 09:07 | Outpatient (CLI) ==
--- NOTE | 2018-04-04 09:37 | HOLTER ---
PATIENT INFORMATION AND COMMENTS Attending Physician: DR. NABEEL JORDAN/ MARY KAY SOW APRN Indications: PALPITATIONS, ABNORMAL EKG __ Patient Medications: BLOOD PRESSURE MEDICATION __ Pre-procedure Summary: Protocol: Standard Heart Rate Started: 04/02/18929 Minimum: 61 BPM Weight: 115 LBS Ended: 04/03/1820 Maximum: 187 BPM Height: 67" Duration: 22 HRS Average: 90 BPM _ INTERPRETATIONS/OBSERVATIONS: 1. BASIC RHYTHM: SINUS, RATE 60 BPM TO 110 BPM, AVERAGE 80 BPM 2. PAROXYSMAL ARIAL FIBRILLATION NOTED WITH RATE OF 180 BPM (SUSTAINED AT TIMES) 3. RARE PVC'S 4. NO ST-T WAVE CHANGES FROM BASELINE 5. ACTIVITY LOG NOT MAINTAINED COPY TO MARY KAY SOW APRN MTDD
== END 2018-04-02 09:08 | disposition home or self-care (01) ==
LOC: CAR 09:07
PROVIDERS: ATTEND Internal Medicine
DX: R00.2 Palpitations (principal); R94.31 Abnormal electrocardiogram [ECG] [EKG]
CPT/HCPCS: 93227

== ENCOUNTER 2018-04-03 06:49 | Outpatient (CLI) ==
[2018-04-03] MEDS ORDERED: DOBUTAMINE 250 ML IV ONE (07:13)
[2018-04-03] MEDS ORDERED: ATROPINE SULFATE PFS ONE (07:13)
--- NOTE | 2018-04-04 09:53 | DOBSTECHO ---
Date of Test:04/03/18 Ordering Physician: DR. NABEEL JORDAN Reason for Examination: ABNORMAL EKG, PALPITATIONS, COPD Current Medications: BLOOD PRESSURE MEDICATION Height: 67" Weight: 115 LBS Target Heart Rate: 136/161 S-T Segment Stage Time HR BPM BP MMHG Rhythm +/- Elevation Depression Comments/ Symptoms Control Sitting 71 130/80 SR X NONE Dobutamine 250mg/D5W 5cmg/KG/mn 10cmg/KG/mn 3:00 74 SR X NONE 15cmg/KG/mn 2:00 78 130/78 SR X NONE 20cmg/KG/mn 2:00 85 158/60 SR X NONE 25cmg/KG/mn 2:00 100 162/62 SR X NONE 30cmg/KG/mn 1:30 155 172/80 SR X .25 MG ATROPINE 35cmg/KG/mn 40cmg/KG/mn Time: 3" HR B/P Time: 8" HR B/P Time: 20" HR B/P Recovery 136 160/70 Recovery 104 150/80 Recovery 78 Total Time: 10:30 Maximum Heart Rate Reached: 155 BPM 98% OXYGEN SATURATION AT REST WITH DOBUTAMINE INFUSION Interpretation: 1. NO EVIDENCE OF ISCHEMIA BY ST-T WAVE 2. NO CHEST PAIN OR CHEST DISCOMFORT 3. NORMAL LEFT VENTRICULAR CONTRACTILITY--RESTING AND WITH DOBUTAMINE INFUSION COPY TO MARY KAY ANDRADE
--- NOTE | 2018-04-04 10:19 | ECHOSTRESS ---
Date of Exam: 04/03/18 Ordering Physician: DR. NABEEL JORDAN/REDD SOW APRN Reason for Echo: ABNORMAL EKG, PALPITATIONS, COPD, DOBUTAMINE STRESS--NO ISCHEMIA M-Mode Normal Adult Results LV Dimensions Normal Adult Results AoV Opening excursions >1.6 LVEDD-base- 3.5-5.8 Ao root dimensions 2.0-3.7 LVESD-base- 3.1-4.6 L. Atrium dimensions 1.9-3.8 Post. Wall thickness 0.8-1.1 IV septum (thickness) 0.7-1.2 Post. Wall excursion 0.72-1.3 Septal motion Systolic motion R. Ventricular cavity 1.5-2.0 LVEF 60% Paradoxical septal wall motion 2-D: NORMAL LEFT VENTRICULAR CONTRACTILITY--RESTING AND WITH DOBUTAMINE INFUSION M-MODE: MV: AV: TV: PV: CHAMBER SIZE: WALL MOTION: NORMAL LEFT VENTRICULAR CONTRACTILITY--RESTING AND WITH DOBUTAMINE INFUSION PERICARDIUM: INTERPRETATION: 1. NORMAL LEFT VENTRICULAR CONTRACTILITY--RESTING AND WITH DOBUTAMINE INFUSION MTDD
== END 2018-04-03 06:50 | disposition home or self-care (01) ==
LOC: CAR 06:49
PROVIDERS: ATTEND Internal Medicine
DX: R94.31 Abnormal electrocardiogram [ECG] [EKG] (principal); R00.2 Palpitations; I34.1 Nonrheumatic mitral (valve) prolapse; J44.9 Chronic obstructive pulmonary disease, unspecified

== ENCOUNTER 2018-11-19 17:43 | Outpatient (CLI) ==
--- NOTE | 2018-11-20 07:33 | DI ---
EXAM: CHEST FRONTAL AND LATERAL VIEWS HISTORY: Cough. COMPARISON: 12/29/2017 FINDINGS: Heart size and mediastinal contour remain within normal limits. There is diffuse, chroni c appearing interstitial accentuation. Lungs are hyperinflated and there is relative lucency of the lung zones suggesting pulmonary emphysema. No acute infiltrates are seen. No vascular congestion. There is no consolidation, visible pleural fluid or pneumothorax. Bones reveal no acute fracture. IMPRESSION: No acute cardiopulmonary process.
== END 2018-11-19 17:44 | disposition home or self-care (01) ==
LOC: RAD 17:43
PROVIDERS: ATTEND Nurse Practitioner Family
DX: R05 Cough (principal)